=== PATIENT | female | born 1940 | race Caucasian/White ===

== ENCOUNTER 2016-03-14 12:20 | Inpatient (IN) | payer MEDICARE ==
[~2016-03-14] VITALS: Ht 162.6 cm; Wt 131.0 kg
[2016-03-14 12:37] LABS: ABG BASE EXCESS 13.3 (-2.0-2.0); ABG DEVICE NASAL CANN; ABG HCO3 43.1 MEQ/L (22.0-26.0); ABG STANDARD HCO3 36.9 MEQ/L (22.0-26.0); ABG TOTAL CO2 45.6 MEQ/L (23.0-31.0); ABG pH (ARTERIAL) 7.343 UNITS (7.350-7.450)
--- NOTE | 2016-03-14 12:48 | REP ---
Clinical: Chest pain. Technique: Portable upright view. Findings: Examination is limited by portable technique and poor expiratory effort both of which accentuate the pulmonary vasculature and interstitium. Cardiomegaly suggested. No pneumothorax. Impression: Limited examination. Cannot exclude pulmonary interstitial edema or bibasilar opacities. Signed by Mario Cabrera MD 03/14/2016 12:40 P
[2016-03-14] MEDS ORDERED: CALC600T10 PO (12:49)
[2016-03-14] MEDS ORDERED: METF500T PO (12:49)
[2016-03-14] MEDS ORDERED: ATOR1TAB21 PO (12:49)
[2016-03-14] MEDS ORDERED: LASI40TA PO (12:49)
[2016-03-14] MEDS ORDERED: POTA20TA PO (12:49)
[2016-03-14] MEDS ORDERED: LISI-542 PO (12:49)
[2016-03-14 12:55] LABS: ABG PARTIAL PRESSURE CO2 81.2 mmHg (35.0-45.0)
[2016-03-14] MEDS ORDERED: ALBUTEROL SULFATE 2.5 MG/0.5 ML INH NEB SOLN NEB PRN (13:45)
[2016-03-14 14:00] VITALS: BP 157/70
[2016-03-14] MEDS ORDERED: GLUCAGON FOR INJ 1 MG VIAL (J1610) SC PRN (14:00)
[2016-03-14] MEDS ORDERED: DEXTROSE 50% 50 ML SYRINGE IV PRN (14:00)
[2016-03-14] MEDS ORDERED: GLUCOSE 4 GM CHEW TABLET PO PRN (14:00)
[2016-03-14 14:37] LABS: CHOLESTEROL LEVEL 181 MG/DL (<200); TRIGLYCERIDES LEVEL 75 MG/DL (<150)
--- NOTE | 2016-03-14 14:40 | HPEPDOC ---
General Date of Admission Mar 14, 2016 at 13:45 Chief Complaint The patient is a 75-year-old female admitted with a reason for visit of Acute Decompensated Heart Failure. Source: Patient, Family Exam Limitations: No limitations History of Present Illness 75-year-old female with past medical history of arthritis, dyslipidemia, diabetes mellitus, congestive heart failure, ?COPD on 2 L of oxygen with likely underlying obesity hypoventilation syndrome, obstructive sleep apnea on CPAP, with history of hypoxic/hypercapnic respiratory failure requiring intubation and subsequent tracheostomy presented from the [place] [facility] to [facility] after she was found to be in acute decompensated heart failure. According to the patient, she has been feeling increasingly short of breath over the last 3 weeks. She states that this culminated today when she felt short of breath at rest. During this time, the patient states that she has had increasing orthopnea. However, she denies any lower extremity swelling. The patient also states that she has been eating a lot more salty foods including chips, drinking more soda, and other foods. In addition, the patient states she is post to take Lasix 40 mg PO twice a day but she has not been taking the evening dose because she states that it makes her need to go to the bathroom more frequently, and she cannot because of her chronic debilitating arthritis. During this time, patient denies any fevers, chills, chest pain, palpitations, abdominal pain, or any nausea/vomiting. In the [facility] ER the patient was noted to be in hypercapnic respiratory failure with a pH of 7.30 and a CO2 level of 96. The patient was placed on BiPAP therapy and received 80 mg of Lasix IV and subsequently diuresed close to 2 L. Upon evaluation here in the ER, the patient states that her respiratory status has improved greatly. A repeat ABG has shown improvement with a pH of 7.34, and a CO2 of 81. Patient will be admitted under the hospitalist service with a diagnosis of acute decompensated congestive heart failure. Home Medications Scheduled Atorvastatin Calcium (Atorvastatin Calcium) 20 Mg Tab 20 MG PO DAILY (Reported ) PATIENT IS ALL OUT Calcium (Calcium) 600 Mg Tab 600 MG PO DAILY (Reported) Furosemide (Lasix) 40 Mg Tab 40 MG PO DAILY (Reported) SUPPOSED TO BE TAKING BID Lisinopril (Lisinopril) 5 Mg Tab 5 MG PO DAILY (Reported) PATIENT IS ALL OUT Metformin Hydrochloride (Metformin HCl) 500 Mg Tab 500 MG PO QPM (Reported) Potassium Chloride (Klor-Con M20) 20 Meq Tabcr 20 MEQ PO DAILY (Reported) Prednisone (Prednisone) 10 Mg Tahir 10 MG PO ASDIRECTED Allergies Coded Allergies: No Known Allergies (Verified Allergy, Unknown, 03/18/04) Past Medical History Medical History As noted in HPI. Surgical History History of tracheostomy in 2004. Family History Significant Family History: No pertinent family hx Social History * Smoker: non-smoker Alcohol: denies Drugs: denies Review of Symptoms Other systems 10 point review of systems negative as otherwise specified in HPI. Physical Examination ENT Exam: Positive: Atraumatic, Mucous membr. moist/pink Chest Exam: Positive: Diminished, Rales (bibasilar rales noted) Heart Exam: Positive: Normal S1, Normal S2, Rate Normal Telemetry: Positive: Sinus Abdomen Exam: Positive: Soft, Negative: Tenderness Extremity Exam: Negative: Edema, Tenderness Vital Signs As listed in EMR Laboratory Data Labs 24H Laboratory Tests 2 03/14/16 12:31: Arterial Blood pH 7.343L, Arterial Blood Partial Pressure CO2 81.2*H, Arterial Blood Partial Pressure O2 58.0L, Arterial Blood Total CO2 45.6H, Arterial Blood HCO3 43.1H, Arterial Blood Base Excess 13.3H, Arterial Blood Oxygen Saturation 90.2L, Blood Gas Bicarbonate Standard 36.9H, Oxygen Delivery Device NASAL KULDEEP 03/14/16 14:08: Estimated Mean Plasma Glucose 131H, Hemoglobin A1c 6.2 Plan / VTE VTE Prophylaxis Ordered?: Yes Plan Plan Acute decompensated heart failure Likely secondary to nonadherence to medication, dietary indiscretion Patient received 80 mg of Lasix IV total, and has subsequently diuresed 2 L with improvement in her shortness of breath We will continue the patient on IV Lasix, cont YURI-I 2D ECHO ordered EKG noted to be NSR, Initial troponin negative--will serially trend Daily Weights, Monitor I/O's 2gm Low Sodium Diet We will continue to monitor on Telemetry Hypoxic and Hypercapneic Respiratory Failure Initial ABG noted to be 7.30/96/61/45-->Patient placed on BiPAP and given Diuretics Repeat ABG at this time has improved to 7.34/81/58/43 and the patient is currently comfortably saturating 94% on 2L Will hold BiPAP for now and repeat ABG @ 5pm to assess the need for further BiPAP therapy as the patient does appear to be improving COPD on 2L @ Home s/p 125 mg of Solumedrol in the ED with improvement of symptoms Will continue on 60mg q8h Cont Neb treatments ROHAN, likely underlying Obesity Hypoventilation Syndrome Patient may use CPAP that she uses at home Dyslipidemia Atorvastatin Diabetes Mellitus Cont on Insulin Sliding Scale GENESIS GEORGE MD Mar 14, 2016 14:40
--- NOTE | 2016-03-14 14:56 | EDDOCDS ---
Nurse's Notes [facility] Name: Eli Ann Age: 75 yrs Sex: Female : 1940 Arrival Date: 03/14/2016 Time: 12:20 Bed 4 Private MD: Victor Hugo Dee Diagnosis: Acute diastolic (congestive) heart failure;Shortness of breath Presentation: 03/14 12:26 Presenting complaint: EMS states: patient transfer in from [facility] for resp distress, ml6 patient arrived on 2L NC smiling and joking with staff. Adult Sepsis Screening: The patient does not have new or worsening altered mentation. Patient's respiratory rate is less than 22. Systolic blood pressure is greater than 100. Patient has a qSOFA score of 0- Negative Sepsis Screen. Suicide/Homicide risk assessment- the patient denies having any suicidal and/or homicidal ideations and does not present with any other emotional, behavioral or mental health complaints. Status: Patient is not a children's service worker or dependent. Transition of care: patient was not received from another setting of care. 12:26 Acuity: VERA Level 3 ml6 12:26 Method Of Arrival: Ambulance ml6 Triage Assessment: 12:29 General: Appears in no apparent distress, Behavior is appropriate for age, cooperative. ml6 Pain: Denies pain. Neurological: No deficits noted. Level of Consciousness is awake, alert, Oriented to person, place, time. Cardiovascular: Capillary refill < 3 seconds is brisk in bilateral fingers toes. Respiratory: Onset: The symptoms/episode began/occurred yesterday, Airway is patent Respiratory effort is even, unlabored, Respiratory pattern is regular, symmetrical, Reports shortness of breath on exertion. Historical: - Allergies: no known allergies; - Home Meds: 1. atorvastatin 20 mg oral tab 1 tab once daily (Last dose: Unknown) 2. Lasix 40 mg Oral tab 1 tab once daily (Last dose: Unknown) 3. lisinopril 5 mg Oral tab 1 tab once daily (Last dose: Unknown) 4. metformin 500 mg Oral tab 1 tab 2 times per day (Last dose: Unknown) 5. potassium chloride 20 mEq Oral TbER 1 tab once daily (Last dose: Unknown) - PMHx: CHF; Diabetes - NIDDM: controlled; CAD; Hypercholesterolemia; Hypertension; COPD; - PSHx: Tracheostomy; - Social history: Smoking status: Patient states former smoker of tobacco. No barriers to communication noted, Speaks appropriately for age. - Family history: Not pertinent. - : The pt / caregiver states he / she is not on anticoagulants. Home medication list is obtained from the patient. - Exposure Risk Screening:: None identified. Screenin:38 Screening information is obtained from the patient. Fall risk: At risk due to gait js13 disturbance. Assistance ADL's: requires no assistance with activities of daily living. Abuse/DV Screen: The patient / caregiver reports he/she is: not in a situation that causes fear, pain or injury. Nutritional screening: No deficits noted. Advance Directives: There is no active DNR order. home support is adequate. Assessment: 12:38 General: Appears in no apparent distress, Behavior is appropriate for age, cooperative. js13 Pain: Denies pain. Neurological: Level of Consciousness is awake, alert, obeys commands. Cardiovascular: Rhythm is sinus rhythm Chest pain is denied. Respiratory: Airway is patent Respiratory effort is even, Respiratory pattern is regular, symmetrical, Breath sounds with rhonchi Breath sounds are diminished. Derm: Skin is pink, warm & dry. 13:28 General: Appears in no apparent distress, comfortable, Behavior is appropriate for age, js13 cooperative. Pain: Denies pain. Neurological: Level of Consciousness is awake, alert, obeys commands. Cardiovascular: Rhythm is sinus rhythm Chest pain is denied. Respiratory: Airway is patent Respiratory effort is even, unlabored, Respiratory pattern is regular, symmetrical, Breath sounds are diminished. Derm: Skin is pink, warm & dry. 14:35 Adult Sepsis Screening: The patient does not have new or worsening altered mentation. js13 Patient's respiratory rate is less than 22. Systolic blood pressure is greater than 100. Patient has a qSOFA score of 0- Negative Sepsis Screen. General: Appears in no apparent distress, comfortable, Behavior is appropriate for age, cooperative. Pain: Denies pain. Neurological: Level of Consciousness is awake, alert, obeys commands. Cardiovascular: Rhythm is sinus rhythm Chest pain is denied. Respiratory: Airway is patent Respiratory effort is even, unlabored, Respiratory pattern is regular, symmetrical, Breath sounds are diminished. Derm: Skin is pink, warm & dry. Vital Signs: 12:28 BP 157 / 70; Pulse 82; Resp 24; Temp 99.0(TE); Pulse Ox 90% on 4 lpm NC; Weight 139.25 ar3 kg (M); Height 5 ft. 4 in. (162.56 cm) (R); 14:12 BP 142 / 65 (auto/); js13 14:12 Pulse 82 MON; Resp 20; Pulse Ox 92% on 2 lpm NC; js13 14:27 BP 138 / 66 (auto/); js13 14:27 Pulse 82 MON; Resp 20; Temp 98.5(O); Pulse Ox 92% on 2 lpm NC; js13 12:28 Body Mass Index 52.70 (139.25 kg, 162.56 cm) ar3 Vitals: 12:30 Log In Time N/A - ambulance arrival. ml6 ED Course: 12:21 Patient visited by Jyoti Lester PCA. ar3 12:21 Yumiko Wilks,RN is Primary Nurse. ar3 12:21 Victor Hugo Dee is Private Physician. ar3 12:21 Patient moved to Waiting ar3 12:21 Patient moved to 4 ar3 12:26 Jennifer Ayon MD is Attending Physician. fg 12:26 Patient visited by Jennifer Ayon MD. fg 12:26 Triage Initiated ml6 12:29 Patient visited by Jyoti Lester PCA. ar3 12:33 Shahzad Conrad is Hospitalizing Provider. fg 12:33 -Arterial Blood Gas Sent. cs15 12:38 The patient / caregiver is instructed regarding the plan of care and ED course. Cardiac js13 monitor on. Pulse ox on. NIBP on. 12:38 No procedures done that require assistance. js13 12:38 O2 via nasal cannula \T\ 2L/min. js13 12:44 Maintain field IV. Dressing intact. Good blood return noted. Site clean & dry. Gauge & js13 site: 20 gauge in RAC. 12:55 Chest, 1 View Returned. EDMS 13:20 [facility] Payment Agreement was scanned into [employer] and attached to record. lg 13:29 Patient visited by Yumiko Wilks,DENY. js13 RT: 12:33 ABG's drawn from right radial artery allens test done and positive pressure held for 5 cs15 minutes no bleeding noted pressure bandage applied specimen sent pt. tolerated well. Order Results: Lab Order: -Arterial Blood Gas; SPEC'M 03/14/16 12:31 Test: ABG pH (ARTERIAL); Value: 7.343; Range: 7.350-7.450; Abnormal: Below low normal; Units: UNITS; Status: F Test: ABG PARTIAL PRESSURE CO2; Value: 81.2; Range: 35.0-45.0; Abnormal: Above upper panic limits; Units: mmHg; Status: F Test: ABG PARTIAL PRESSURE O2; Value: 58.0; Range: 75.0-100.0; Abnormal: Below low normal; Units: mmHg; Status: F Test: ABG TOTAL CO2; Value: 45.6; Range: 23.0-31.0; Abnormal: Above high normal; Units: MEQ/L; Status: F Test: ABG HCO3; Value: 43.1; Range: 22.0-26.0; Abnormal: Above high normal; Units: MEQ/L; Status: F Test: ABG BASE EXCESS; Value: 13.3; Range: -2.0-2.0; Abnormal: Above high normal; Status: F Test: ABG STANDARD HCO3; Value: 36.9; Range: 22.0-26.0; Abnormal: Above high normal; Units: MEQ/L; Status: F Test: ABG O2 SATURATION; Value: 90.2; Range: 95.0-99.0; Abnormal: Below low normal; Units: %; Status: F Test: ABG DEVICE; Value: NASAL KULDEEP; Status: F Lab Order: TROPONIN; [facility] 03/14/16 14:08 Test: TROPONIN I; Value: < 0.02; Range: < 0.10; Units: NG/ML; Status: F Test Note: ; Troponin I Reference Interval for [place] LOCI: 99th Percentile= 0.00-0.045 ng/ml Risk Stratification: <= 0.10 ng/ml Decreased Risk for Adverse Clinical Events. 0.10-1.50 ng/ml Increased Risk for Adverse Clinical Events. Evaluation of additional criterion and/or repeat testing in 2-6 hours is suggested to rule out myocardial damage. >= 1.50 ng/ml Indicative of Myocardial Injury. Lab Order: HEMOGLOBIN A1C; [facility] 03/14/16 14:08 Test: HEMOGLOBIN A1c; Value: 6.2; Range: 4.5-6.2; Units: %; Status: F Test: ESTIMATED AVERAGE GLUCOSE; Value: 131; Range: 60-110; Abnormal: Above high normal; Units: MG/DL; Status: F Lab Order: CARDIAC RISK PROFILE; [facility] 03/14/16 14:08 Test: TRIGLYCERIDES LEVEL; Value: 75; Range: <150; Units: MG/DL; Status: F Test: CHOLESTEROL LEVEL; Value: 181; Range: <200; Units: MG/DL; Status: F Test: HDL CHOLESTEROL; Value: 80; Range: >40; Units: MG/DL; Status: F Test: LDL CHOLESTEROL; Value: 86.0; Range: <100; Units: MG/DL; Status: F Test: NON-HDL-C; Value: 101; Units: MG/DL; Status: F Test: CHOLESTEROL RISK RATIO; Value: 2.262; Range: <5; Status: F Radiology Order: Chest, 1 View Test: Chest, 1 View REASON FOR EXAMINATION: Chest Pain; Clinical: Chest pain.; ; Technique: Portable upright view.; ; Findings:; Examination is limited by portable technique and poor expiratory effort both of; which accentuate the pulmonary vasculature and interstitium. Cardiomegaly; suggested. No pneumothorax.; ; Impression:; Limited examination.; Cannot exclude pulmonary interstitial edema or bibasilar opacities.; ; ; Signed by; Mario Cabrera MD 03/14/2016 12:40 P; Outcome: 12:33 Decision to Hospitalize by Provider. fg 14:27 Admission hand-off: Report called to Justine Ferrera RN. js13 14:37 Discharge Assessment: Patient awake, alert and oriented x 3. No cognitive and/or js13 functional deficits noted. Patient verbalized understanding of disposition instructions. patient administered narcotics - no. The following High Risk Discharge criteria are identified: None. Admitted to ICU accompanied by nurse, accompanied by tech, family with patient, via stretcher, with oxygen, on monitor, with chart. Condition: stable. No special radiology studies were completed. Property :Personal belongings accompany Pt. 14:55 Patient left the ED. [facility] Signatures: Dispatcher [employer] EDCassandra Marinelli RN RN Essence Presley, Og Marcial lg, RN RN ml6 Trevon, Jyoti, PROPERTY DEVELOPER PROPERTY DEVELOPER ar3 Yumiko Wilks,RN RN js13 Jennifer Ayon MD MD fg Chavo Soler,RT RT cs15 Corrections: (The following items were deleted from the chart) 12:44 12:38 O2 via nasal cannula \T\ 4L/min js13 js13 MTDD
--- NOTE | 2016-03-14 14:56 | EDDOCDS ---
Physician Documentation [facility] Name: Eli Ann Age: 75 yrs Sex: Female : 1940 Arrival Date: 03/14/2016 Time: 12:20 Bed 4 Private MD: Victor Hugo Dee Disposition: 03/14/16 12:33 Hospitalization ordered by Shahzad Conrad for Inpatient Admission. Preliminary diagnosis are Acute diastolic (congestive) heart failure, Shortness of breath. - Bed requested for ICU. - Status is Inpatient Admission. [facility] - Condition is Stable. - Problem is chronic. - Symptoms have improved. Historical: - Allergies: no known allergies; - Home Meds: 1. atorvastatin 20 mg oral tab 1 tab once daily (Last dose: Unknown) 2. Lasix 40 mg Oral tab 1 tab once daily (Last dose: Unknown) 3. lisinopril 5 mg Oral tab 1 tab once daily (Last dose: Unknown) 4. metformin 500 mg Oral tab 1 tab 2 times per day (Last dose: Unknown) 5. potassium chloride 20 mEq Oral TbER 1 tab once daily (Last dose: Unknown) - PMHx: CHF; Diabetes - NIDDM: controlled; CAD; Hypercholesterolemia; Hypertension; COPD; - PSHx: Tracheostomy; - Social history: Smoking status: Patient states former smoker of tobacco. No barriers to communication noted, Speaks appropriately for age. - Family history: Not pertinent. - : The pt / caregiver states he / she is not on anticoagulants. Home medication list is obtained from the patient. - Exposure Risk Screening:: None identified. Vital Signs: 03/14 12:28 BP 157 / 70; Pulse 82; Resp 24; Temp 99.0(TE); Pulse Ox 90% on 4 lpm NC; Weight 139.25 ar3 kg / 306.99 lbs (M); Height 5 ft. 4 in. (162.56 cm) (R); 14:12 BP 142 / 65 (auto/); 13 14:12 Pulse 82 MON; Resp 20; Pulse Ox 92% on 2 lpm NC; 14:27 BP 138 / 66 (auto/); 14:27 Pulse 82 MON; Resp 20; Temp 98.5(O); Pulse Ox 92% on 2 lpm NC; 12:28 Body Mass Index 52.70 (139.25 kg, 162.56 cm) ar3 MDM: 12:23 Call Respiratory ordered. ke 12:23 -Arterial Blood Gas Ordered. EDMS 12:27 Chest, 1 View Ordered. EDMS 12:28 Call Respiratory complete. ar3 12:28 BED REQUEST+ADM ordered. EDMS 13:16 Financial registration complete. lg 13:20 [facility] Payment Agreement was scanned into [employer] and attached to record. lg 13:58 PORTABLE CHEST X-RAY Ordered. EDMS 13:58 Admission / Observation Status ordered. EDMS 13:58 ECHOCARD,DOPPLER/COLOR FLOW ordered. EDMS 13:59 ARTERIAL BLOOD GAS Ordered. EDMS 13:59 TROPONIN Ordered. EDMS 13:59 TROPONIN Ordered. EDMS 13:59 HEMOGLOBIN A1C Ordered. EDMS 13:59 SPUTUM CULTURE AND GRAM STAIN Ordered. EDMS 14:01 CONSISTENT CARBOHYDRATES ordered. EDMS 14:13 CARDIAC RISK PROFILE Ordered. EDMS Signatures: Dispatcher [employer] EDMS Cassandra Rodriguez, RN RN Essence Romero, Reg Reg Ryley Ball, HEARTH FEEDER HEARTH FEEDER Og Zheng RN RN ml6 Jyoti Lester, AUTO APPRENTICE MECHANIC AUTO APPRENTICE MECHANIC ar3 Yumiko Wilks,RN RN js13 Jennifer Ayon MD MD fg Gosselin, Lisa RN RN coring The chart was reviewed and I authenticate all verbal orders and agree with the evaluation and treatment provided.Corrections: (The following items were deleted from the chart) 14:13 13:59 CARDIAC RISK PROFILE ordered. EDMS EDMS Attachments: 13:20 [facility] Payment Agreement lg MTDD
[2016-03-14 15:04] VITALS: BP 174/73
[2016-03-14] MEDS: ALBUTEROL SULFATE 2.5 MG/0.5 ML INH NEB SOLN NEB SCH ×3 (15:33→23:32)
[2016-03-14] MEDS: ENOXAPARIN 40 MG/0.4 ML SYRINGE (J1650) SC SCH (15:41)
[2016-03-14] MEDS: methylPREDNISolone INJ 125 MG/2 ML VIAL (J2930) IV SCH ×2 (15:41→23:44)
[2016-03-14] MEDS: LISINOPRIL 5 MG TAB PO SCH (15:41)
[2016-03-14] MEDS: ATORVASTATIN 20 MG TAB PO SCH (15:42)
[2016-03-14] MEDS: POTASSIUM CHLORIDE 10 MEQ SR TABLET PO SCH (15:42)
[2016-03-14 16:54] LABS: ABG BASE EXCESS 14.4 (-2.0-2.0); ABG HCO3 42.7 MEQ/L (22.0-26.0); ABG PARTIAL PRESSURE O2 59.8 mmHg (75.0-100.0); ABG STANDARD HCO3 38.2 MEQ/L (22.0-26.0); ABG TOTAL CO2 44.8 MEQ/L (23.0-31.0); ABG pH (ARTERIAL) 7.409 UNITS (7.350-7.450)
[2016-03-14] MEDS: FUROSEMIDE 40 MG/4 ML VIAL (J1940) IV SCH (17:20)
[2016-03-14] MEDS: HumaLOG INSULIN (NovoLOG) PER UNIT SC SCH ×2 (17:21→20:38)
[2016-03-14] MEDS: LANSOPRAZOLE SUSPENSION 30 MG/10 ML ORAL SYRINGE (FIRST-LANSOPRAZOLE) PO SCH (17:26)
[2016-03-14 18:00] VITALS: BP 130/63
[2016-03-14 20:00] VITALS: BP 146/62
[2016-03-14] MEDS: NYSTATIN 100,000 UNITS/GM TOPICAL PWD 15 GM TOP SCH (20:39)
[2016-03-15] VITALS: BP 117/55
[2016-03-15] MEDS: ALBUTEROL SULFATE 2.5 MG/0.5 ML INH NEB SOLN NEB SCH ×6 (03:06→23:34)
[2016-03-15 04:00] VITALS: BP 128/62
[2016-03-15 04:31] LABS: ABG BASE EXCESS 14.5 (-2.0-2.0); ABG CPAP 10; ABG HCO3 42.3 MEQ/L (22.0-26.0); ABG TOTAL CO2 44.4 MEQ/L (23.0-31.0); ABG pH (ARTERIAL) 7.419 UNITS (7.350-7.450)
[2016-03-15 04:33] LABS: ABG PARTIAL PRESSURE CO2 66.9 mmHg (35.0-45.0); ABG PARTIAL PRESSURE O2 47.7 mmHg (75.0-100.0)
[2016-03-15 05:21] LABS: ANION GAP 4 MEQ/L (8-16); BLOOD UREA NITROGEN 19 MG/DL (7-18); CALCIUM LEVEL 8.7 MG/DL (8.8-10.2); CARBON DIOXIDE LEVEL 45 MEQ/L (21-32); CHLORIDE LEVEL 94 MEQ/L (98-107); CREATININE FOR GFR 0.76 MG/DL (0.55-1.02); GLOMERULAR FILTRATION RATE > 60.0 (>39); GLUCOSE, FASTING 206 MG/DL (83-110); POTASSIUM SERUM 3.8 MEQ/L (3.5-5.1); SODIUM LEVEL 143 MEQ/L (136-145)
[2016-03-15 05:25] LABS: MEAN CORPUSCULAR HEMOGLOBIN 30.4 pg (27.0-33.0); MEAN CORPUSCULAR HGB CONC 31.4 g/dl (32.0-36.5); MEAN CORPUSCULAR VOLUME 96.9 fl (80.0-96.0); RED CELL DISTRIBUTION WIDTH 13.2 % (11.5-14.5); WHITE BLOOD COUNT 8.3 K/mm3 (4.0-10.0)
--- NOTE | 2016-03-15 06:26 | ECHO ---
DATE OF PROCEDURE: 03/14/2016 DATE OF : 1940 AGE: 75 REFERRING PROVIDER: Dr. Shahzad Conrad. PATIENT LOCATION: Room 3209. REASON FOR ECHOCARDIOGRAM: Congestive heart failure. 2D MEASUREMENTS: IVS: 1.3 cm LV: 4.8 cm LVPW: 1.3 cm LA: 4.0 cm Aorta: 3.0 cm IVC: 1.9 cm DOPPLER MEASUREMENTS: Peak velocity across the aortic valve: 1.7 m/s Peak velocity across the LVOT: 1.4 m/s Mitral E: 0.75 Mitral A: 1.1 Ratio 0.7 2D COMMENTS: 1. Particularly mildly limited study due to poor acoustic window. 2. The left ventricular size is normal with mildly increased left ventricular wall thickness and a normal global left ventricular systolic function. The estimated global left ventricular systolic ejection fraction is 65-70%. 3. Borderline enlarged left atrium. Normal right atrium and right ventricle. 4. The atrial septum appeared to be normal without evidence of defect or shunt. 5. Normal aortic root. 6. Trace pericardial effusion noted, no evidence of cardiac tamponade. 7. Mildly calcified aortic valve, leaflet excursion appeared to be normal. Mildly calcified mitral annulus with normal anterior mitral valve leaflet motion. Normal tricuspid valve. The pulmonic valve and proximal pulmonary artery branches were not well visualized. 8. The inferior vena cava was not visualized. DOPPLER: Only trace aortic regurgitation detected. Abnormal relaxation pattern was noted across the mitral valve leaflets consistent with grade 1 left ventricular diastolic dysfunction. IMPRESSION: 1. Particularly mildly limited study due to poor acoustic window. 2. Normal global left ventricular systolic function with mild concentric left ventricular hypertrophy. There are features of left ventricular diastolic dysfunction, abnormal relaxation. 3. Isolated borderline enlarged left atrium, no evidence of significant mitral regurgitation. 4. Aortic valve sclerosis with trace aortic regurgitation. 5. Trace pericardial effusion.
[2016-03-15 08:00] VITALS: BP 115/58
[2016-03-15] MEDS: HumaLOG INSULIN (NovoLOG) PER UNIT SC SCH ×4 (08:38→20:37)
[2016-03-15] MEDS: ENOXAPARIN 40 MG/0.4 ML SYRINGE (J1650) SC SCH (08:39)
[2016-03-15] MEDS: methylPREDNISolone INJ 125 MG/2 ML VIAL (J2930) IV SCH ×2 (08:39→19:46)
[2016-03-15] MEDS: FUROSEMIDE 40 MG/4 ML VIAL (J1940) IV SCH ×2 (08:39→17:17)
[2016-03-15] MEDS: LANSOPRAZOLE SUSPENSION 30 MG/10 ML ORAL SYRINGE (FIRST-LANSOPRAZOLE) PO SCH (08:39)
[2016-03-15] MEDS: POTASSIUM CHLORIDE 10 MEQ SR TABLET PO SCH (08:40)
[2016-03-15] MEDS: LISINOPRIL 5 MG TAB PO SCH (08:40)
[2016-03-15] MEDS: ATORVASTATIN 20 MG TAB PO SCH (08:40)
[2016-03-15] MEDS: NYSTATIN 100,000 UNITS/GM TOPICAL PWD 15 GM TOP SCH ×2 (08:41→21:26)
[2016-03-15 12:00] VITALS: BP 106/56
[2016-03-15] MEDS ORDERED: SLF 3 ML SYR IV PRN (12:45)
[2016-03-15] MEDS: SLF 3 ML SYR IV SCH ×2 (13:38→21:26)
--- NOTE | 2016-03-15 15:02 | IPN ---
DATE: 03/15/2016 Ms. Ann is feeling better this morning than she did at the time of presentation. She has no complaints of pain. No chest pain. Shortness of breath has improved. Apparently, last night, she had difficulty with her continuous positive airway pressure (CPAP) device and she required a higher end-expiratory pressure. She has been more comfortable this morning. PHYSICAL EXAMINATION: VITAL SIGNS: Temperature 98.6, pulse 74, respiratory rate 26, blood pressure 115/58, 92% on three liters. Input and output (I and O) notable for a negative fluid balance of -2250. Weight this morning is 132 kg with a body mass index of 50. GENERAL: She is awake, appropriately interactive, and pleasantly conversant. RESPIRATORY: Breathing is symmetrical. I:E ratio is 1:3, diminished throughout. No accessory muscle use. Speaking in sentences. HEART: Regular rate and rhythm. No significant arrhythmia on monitor. ABDOMEN: Soft, doughy, nontender. LABORATORY DATA: White cell count 8.3, hemoglobin 13.5, platelets of 249. BUN 19, creatinine 0.76. Sputum culture looks to be a good sample. The results of which are pending. ASSESSMENT: This is a 75-year-old with decompensated congestive heart failure with diastolic dysfunction, preserved left ventricular ejection fraction who had hypoxic and hypercapnic respiratory failure with improvement. PLAN: 1. Congestive heart failure. The patient has had a negative fluid status. Continuing with IV Lasix as ordered. A 2-D echocardiogram showed diastolic dysfunction. 2. The patient had hypoxic/hypercapnic respiratory failure with difficulty managing on home continuous positive airway pressure (CPAP) last night. Most likely related to changing lung compliance related to her decompensated heart failure. I discussed this case in general with the covering physics instructor who suggested a nocturnal oximetry study tonight. We will continue with steroids. 3. The patient has suspected obesity hypoventilation syndrome related to her morbid obesity. 4. The patient has dyslipidemia. 5. The patient has diabetes.
--- NOTE | 2016-03-15 15:47 | REP ---
PORTABLE CHEST: AP portable view of the chest is performed and compared to multiple prior exams, the most recent of which is 03/14/2016. Cardiac silhouette is again prominent. There is calcification and ectasia of the thoracic aorta. There is significant elevation of the right hemidiaphragm, unchanged. There is pulmonary venous hypertension. Linear atelectatic changes are seen in each lung base. No definite consolidating infiltrate is seen. IMPRESSION: Mild cardiomegaly and pulmonary vascular congestion. Bibasilar atelectatic changes. Signed by Junior Jeter MD 03/16/2016 05:06 P
[2016-03-15 16:00] VITALS: BP 103/50
[2016-03-15 20:00] VITALS: BP 120/57
[2016-03-16] VITALS: BP 102/58
[2016-03-16] MEDS: ALBUTEROL SULFATE 2.5 MG/0.5 ML INH NEB SOLN NEB SCH ×6 (03:33→23:30)
[2016-03-16 04:00] VITALS: BP 95/50
[2016-03-16 05:03] LABS: MEAN CORPUSCULAR HEMOGLOBIN 30.3 pg (27.0-33.0); MEAN CORPUSCULAR HGB CONC 30.5 g/dl (32.0-36.5); MEAN CORPUSCULAR VOLUME 99.3 fl (80.0-96.0); RED CELL DISTRIBUTION WIDTH 14.1 % (11.5-14.5); WHITE BLOOD COUNT 14.2 K/mm3 (4.0-10.0)
[2016-03-16 05:27] LABS: ANION GAP 6 MEQ/L (8-16); BLOOD UREA NITROGEN 32 MG/DL (7-18); CALCIUM LEVEL 8.6 MG/DL (8.8-10.2); CARBON DIOXIDE LEVEL 43 MEQ/L (21-32); CHLORIDE LEVEL 93 MEQ/L (98-107); CREATININE FOR GFR 0.83 MG/DL (0.55-1.02); GLOMERULAR FILTRATION RATE > 60.0 (>39); GLUCOSE, FASTING 202 MG/DL (83-110); POTASSIUM SERUM 4.2 MEQ/L (3.5-5.1); SODIUM LEVEL 142 MEQ/L (136-145)
[2016-03-16] MEDS: SLF 3 ML SYR IV SCH ×3 (06:20→21:55)
[2016-03-16] MEDS: methylPREDNISolone INJ 125 MG/2 ML VIAL (J2930) IV SCH ×2 (07:41→20:09)
[2016-03-16] MEDS: HumaLOG INSULIN (NovoLOG) PER UNIT SC SCH ×4 (07:41→20:10)
[2016-03-16 08:00] VITALS: BP 121/54
[2016-03-16] MEDS: ENOXAPARIN 40 MG/0.4 ML SYRINGE (J1650) SC SCH (08:35)
[2016-03-16] MEDS: LANSOPRAZOLE SUSPENSION 30 MG/10 ML ORAL SYRINGE (FIRST-LANSOPRAZOLE) PO SCH (08:35)
[2016-03-16] MEDS: ATORVASTATIN 20 MG TAB PO SCH (08:35)
[2016-03-16] MEDS: LISINOPRIL 5 MG TAB PO SCH (08:36)
[2016-03-16] MEDS: FUROSEMIDE 40 MG/4 ML VIAL (J1940) IV SCH (08:36)
[2016-03-16] MEDS: POTASSIUM CHLORIDE 10 MEQ SR TABLET PO SCH (08:36)
[2016-03-16] MEDS: NYSTATIN 100,000 UNITS/GM TOPICAL PWD 15 GM TOP SCH ×2 (08:38→20:10)
--- NOTE | 2016-03-16 09:13 | REP ---
PORTABLE CHEST: AP portable view of the chest is performed and compared to prior study of 03/15/2016. There is again cardiomegaly and vascular congestion, unchanged. Calcified granuloma is again seen in the right lung. There is mild linear fibroatelectatic change in each lung base. There is significant elevation of the right hemidiaphragm. The mediastinal silhouette is unchanged. IMPRESSION: Stable exam. Signed by Junior Jeter MD 03/16/2016 05:18 P
--- NOTE | 2016-03-16 11:17 | IPN ---
DATE: 03/16/2016 Ms. Ann is feeling well today. She did sleep okay last night. She said it is the first night that she slept well since being in the hospital. She has no complaints of pain. No chest pain. She is not particularly short of breath. She is not coughing. She has tolerated a diet. Says that she is chronically incontinent of urine. Temperature 97.6, pulse 65, respiratory rate 28, blood pressure 121/54, 92% on three liters. Input and output (I and O) notable for a negative fluid balance of -300. No bowel movements noted yesterday. Weight is 134.2 kg with a body mass index of 50.8. She is awake, appropriately interactive, and pleasantly conversant. Breathing is symmetrical and diminished throughout. I:E ratio is 1:3. No wheezes, rales or rhonchi. Neck is thick. No accessory muscle use. Abdomen soft, doughy, nontender. Heart is in a regular rate and rhythm. No arrhythmia on the monitor. White cell count 14.2, hemoglobin 13, platelets of 240. BUN 32, creatinine 0.8. Sputum is notable for normal renuka. Chest x-ray from today shows elevation of the right hemidiaphragm. Calcified granuloma in the right lung with no change. ASSESSMENT: This is a 75-year-old who presented with decompensated congestive heart failure with diastolic dysfunction with preserved left ventricular ejection fraction. PLAN: 1. Congestive heart failure. The patient is probably at her dry weight and is much improved from the time of presentation. Will switch to oral Lasix today. Monitor clinically. 2. The patient had hypoxic/hypercapnic respiratory failure at the time of presentation and has had difficulty with home continuous positive airway pressure (CPAP). Will attempt to adjust her home CPAP to 9 for the PEEP and then bleed in oxygen to maintain saturations. She will need outpatient sleep study. I have discussed this case with the on-call rocket test fire worker in general. 3. The patient has suspected obesity hypoventilation syndrome related to morbid obesity. 4. The patient has dyslipidemia. 5. The patient has diabetes. Finger sticks are reasonably well controlled for the current setting.
[2016-03-16 12:00] VITALS: BP 113/55
--- NOTE | 2016-03-16 15:57 | EDDOCDS ---
Physician Documentation [facility] Name: Eli Ann Age: 75 yrs Sex: Female : 1940 Arrival Date: 03/14/2016 Time: 12:20 Bed 4 Private MD: Victor Hugo Dee Disposition: 03/14/16 12:33 Hospitalization ordered by Shahzad Conrad for Inpatient Admission. Preliminary diagnosis are Acute diastolic (congestive) heart failure, Shortness of breath. - Bed requested for ICU. - [facility] - Condition is Stable. - Problem is chronic. - Symptoms have improved. Historical: - Allergies: no known allergies; - Home Meds: 1. atorvastatin 20 mg oral tab 1 tab once daily (Last dose: Unknown) 2. Lasix 40 mg Oral tab 1 tab once daily (Last dose: Unknown) 3. lisinopril 5 mg Oral tab 1 tab once daily (Last dose: Unknown) 4. metformin 500 mg Oral tab 1 tab 2 times per day (Last dose: Unknown) 5. potassium chloride 20 mEq Oral TbER 1 tab once daily (Last dose: Unknown) - PMHx: CHF; Diabetes - NIDDM: controlled; CAD; Hypercholesterolemia; Hypertension; COPD; - PSHx: Tracheostomy; - Social history: Smoking status: Patient states former smoker of tobacco. No barriers to communication noted, Speaks appropriately for age. - Family history: Not pertinent. - : The pt / caregiver states he / she is not on anticoagulants. Home medication list is obtained from the patient. - Exposure Risk Screening:: None identified. Vital Signs: 03/14 12:28 BP 157 / 70; Pulse 82; Resp 24; Temp 99.0(TE); Pulse Ox 90% on 4 lpm NC; Weight 139.25 ar3 kg / 306.99 lbs (M); Height 5 ft. 4 in. (162.56 cm) (R); 14:12 BP 142 / 65 (auto/); 13 14:12 Pulse 82 MON; Resp 20; Pulse Ox 92% on 2 lpm NC; 14:27 BP 138 / 66 (auto/); 14:27 Pulse 82 MON; Resp 20; Temp 98.5(O); Pulse Ox 92% on 2 lpm NC; 12:28 Body Mass Index 52.70 (139.25 kg, 162.56 cm) ar3 MDM: 12:23 Call Respiratory ordered. ke 12:23 -Arterial Blood Gas Ordered. EDMS 12:27 Chest, 1 View Ordered. EDMS 12:28 Call Respiratory complete. ar3 12:28 BED REQUEST+ADM ordered. EDMS 13:16 Financial registration complete. lg 13:20 [facility] Payment Agreement was scanned into [employer] and attached to record. lg 13:58 PORTABLE CHEST X-RAY Ordered. EDMS 13:58 Admission / Observation Status ordered. EDMS 13:58 ECHOCARD,DOPPLER/COLOR FLOW ordered. EDMS 13:59 ARTERIAL BLOOD GAS Ordered. EDMS 13:59 TROPONIN Ordered. EDMS 13:59 TROPONIN Ordered. EDMS 13:59 HEMOGLOBIN A1C Ordered. EDMS 13:59 SPUTUM CULTURE AND GRAM STAIN Ordered. EDMS 14:01 CONSISTENT CARBOHYDRATES ordered. EDMS 14:13 CARDIAC RISK PROFILE Ordered. EDMS 03/15 04:07 T-Sheet-- Draft Copy was scanned into [employer] and attached to record. hs2 10:57 PCR was scanned into [employer] and attached to record. gb Signatures: Dispatcher [employer] EDMS Cassandra Rodriguez, RN RN Carmen Potter, Reg Reg gb Essence Flores, Reg Reg lg Ryley Ball, PATIENT SAFETY ATTENDANT PATIENT SAFETY ATTENDANT Og Zheng RN RN ml6 Jyoti Lester, DEPUTY EDITOR IN CHIEF DEPUTY EDITOR IN CHIEF ar3 Yumiko Wilks,RN RN js13 Jennifer Ayon MD MD fg Stanton, Hillary, Reg Reg hs2 Chelsie Torres RN DENY coombsg The chart was reviewed and I authenticate all verbal orders and agree with the evaluation and treatment provided.Corrections: (The following items were deleted from the chart) 03/14 14:13 13:59 CARDIAC RISK PROFILE ordered. EDMS EDMS Attachments: 13:20 [facility] Payment Agreement lg 03/15 04:07 T-Sheet-- Draft Copy hs2 Chart Complete MTDD
--- NOTE | 2016-03-16 15:57 | EDDOCDS ---
Nurse's Notes [facility] Name: Eli Ann Age: 75 yrs Sex: Female : 1940 Arrival Date: 03/14/2016 Time: 12:20 Bed 4 Private MD: Victor Hugo Dee Diagnosis: Acute diastolic (congestive) heart failure;Shortness of breath Presentation: 03/14 12:26 Presenting complaint: EMS states: patient transfer in from [facility] for resp distress, ml6 patient arrived on 2L NC smiling and joking with staff. Adult Sepsis Screening: The patient does not have new or worsening altered mentation. Patient's respiratory rate is less than 22. Systolic blood pressure is greater than 100. Patient has a qSOFA score of 0- Negative Sepsis Screen. Suicide/Homicide risk assessment- the patient denies having any suicidal and/or homicidal ideations and does not present with any other emotional, behavioral or mental health complaints. Status: Patient is not a marine service operator or dependent. Transition of care: patient was not received from another setting of care. 12:26 Acuity: VERA Level 3 ml6 12:26 Method Of Arrival: Ambulance ml6 Triage Assessment: 12:29 General: Appears in no apparent distress, Behavior is appropriate for age, cooperative. ml6 Pain: Denies pain. Neurological: No deficits noted. Level of Consciousness is awake, alert, Oriented to person, place, time. Cardiovascular: Capillary refill < 3 seconds is brisk in bilateral fingers toes. Respiratory: Onset: The symptoms/episode began/occurred yesterday, Airway is patent Respiratory effort is even, unlabored, Respiratory pattern is regular, symmetrical, Reports shortness of breath on exertion. Historical: - Allergies: no known allergies; - Home Meds: 1. atorvastatin 20 mg oral tab 1 tab once daily (Last dose: Unknown) 2. Lasix 40 mg Oral tab 1 tab once daily (Last dose: Unknown) 3. lisinopril 5 mg Oral tab 1 tab once daily (Last dose: Unknown) 4. metformin 500 mg Oral tab 1 tab 2 times per day (Last dose: Unknown) 5. potassium chloride 20 mEq Oral TbER 1 tab once daily (Last dose: Unknown) - PMHx: CHF; Diabetes - NIDDM: controlled; CAD; Hypercholesterolemia; Hypertension; COPD; - PSHx: Tracheostomy; - Social history: Smoking status: Patient states former smoker of tobacco. No barriers to communication noted, Speaks appropriately for age. - Family history: Not pertinent. - : The pt / caregiver states he / she is not on anticoagulants. Home medication list is obtained from the patient. - Exposure Risk Screening:: None identified. Screenin:38 Screening information is obtained from the patient. Fall risk: At risk due to gait js13 disturbance. Assistance ADL's: requires no assistance with activities of daily living. Abuse/DV Screen: The patient / caregiver reports he/she is: not in a situation that causes fear, pain or injury. Nutritional screening: No deficits noted. Advance Directives: There is no active DNR order. home support is adequate. Assessment: 12:38 General: Appears in no apparent distress, Behavior is appropriate for age, cooperative. js13 Pain: Denies pain. Neurological: Level of Consciousness is awake, alert, obeys commands. Cardiovascular: Rhythm is sinus rhythm Chest pain is denied. Respiratory: Airway is patent Respiratory effort is even, Respiratory pattern is regular, symmetrical, Breath sounds with rhonchi Breath sounds are diminished. Derm: Skin is pink, warm & dry. 13:28 General: Appears in no apparent distress, comfortable, Behavior is appropriate for age, js13 cooperative. Pain: Denies pain. Neurological: Level of Consciousness is awake, alert, obeys commands. Cardiovascular: Rhythm is sinus rhythm Chest pain is denied. Respiratory: Airway is patent Respiratory effort is even, unlabored, Respiratory pattern is regular, symmetrical, Breath sounds are diminished. Derm: Skin is pink, warm & dry. 14:35 Adult Sepsis Screening: The patient does not have new or worsening altered mentation. js13 Patient's respiratory rate is less than 22. Systolic blood pressure is greater than 100. Patient has a qSOFA score of 0- Negative Sepsis Screen. General: Appears in no apparent distress, comfortable, Behavior is appropriate for age, cooperative. Pain: Denies pain. Neurological: Level of Consciousness is awake, alert, obeys commands. Cardiovascular: Rhythm is sinus rhythm Chest pain is denied. Respiratory: Airway is patent Respiratory effort is even, unlabored, Respiratory pattern is regular, symmetrical, Breath sounds are diminished. Derm: Skin is pink, warm & dry. Vital Signs: 12:28 BP 157 / 70; Pulse 82; Resp 24; Temp 99.0(TE); Pulse Ox 90% on 4 lpm NC; Weight 139.25 ar3 kg (M); Height 5 ft. 4 in. (162.56 cm) (R); 14:12 BP 142 / 65 (auto/); js13 14:12 Pulse 82 MON; Resp 20; Pulse Ox 92% on 2 lpm NC; js13 14:27 BP 138 / 66 (auto/); js13 14:27 Pulse 82 MON; Resp 20; Temp 98.5(O); Pulse Ox 92% on 2 lpm NC; js13 12:28 Body Mass Index 52.70 (139.25 kg, 162.56 cm) ar3 Vitals: 12:30 Log In Time N/A - ambulance arrival. ml6 ED Course: 12:21 Patient visited by Jyoti Lester PCA. ar3 12:21 Yumiko Wilks,RN is Primary Nurse. ar3 12:21 Victor Hugo Dee is Private Physician. ar3 12:21 Patient moved to Waiting ar3 12:21 Patient moved to 4 ar3 12:26 Jennifer Ayon MD is Attending Physician. fg 12:26 Patient visited by Jennifer Ayon MD. fg 12:26 Triage Initiated ml6 12:29 Patient visited by Jyoti Lester PCA. ar3 12:33 Shahzad Conrad is Hospitalizing Provider. fg 12:33 -Arterial Blood Gas Sent. cs15 12:38 The patient / caregiver is instructed regarding the plan of care and ED course. Cardiac js13 monitor on. Pulse ox on. NIBP on. 12:38 No procedures done that require assistance. js13 12:38 O2 via nasal cannula \T\ 2L/min. js13 12:44 Maintain field IV. Dressing intact. Good blood return noted. Site clean & dry. Gauge & js13 site: 20 gauge in RAC. 12:55 Chest, 1 View Returned. EDMS 13:20 [facility] Payment Agreement was scanned into [employer] and attached to record. lg 13:29 Patient visited by Yumiko Wilks,DENY. js13 03/15 04:07 T-Sheet-- Draft Copy was scanned into [employer] and attached to record. hs2 10:57 PCR was scanned into [employer] and attached to record. gb RT: 03/14 12:33 ABG's drawn from right radial artery allens test done and positive pressure held for 5 cs15 minutes no bleeding noted pressure bandage applied specimen sent pt. tolerated well. Order Results: Lab Order: -[facility] 12:31 Test: ABG pH (ARTERIAL); Value: 7.343; Range: 7.350-7.450; Abnormal: Below low normal; Units: UNITS; Status: F Test: ABG PARTIAL PRESSURE CO2; Value: 81.2; Range: 35.0-45.0; Abnormal: Above upper panic limits; Units: mmHg; Status: F Test: ABG PARTIAL PRESSURE O2; Value: 58.0; Range: 75.0-100.0; Abnormal: Below low normal; Units: mmHg; Status: F Test: ABG TOTAL CO2; Value: 45.6; Range: 23.0-31.0; Abnormal: Above high normal; Units: MEQ/L; Status: F Test: ABG HCO3; Value: 43.1; Range: 22.0-26.0; Abnormal: Above high normal; Units: MEQ/L; Status: F Test: ABG BASE EXCESS; Value: 13.3; Range: -2.0-2.0; Abnormal: Above high normal; Status: F Test: ABG STANDARD HCO3; Value: 36.9; Range: 22.0-26.0; Abnormal: Above high normal; Units: MEQ/L; Status: F Test: ABG O2 SATURATION; Value: 90.2; Range: 95.0-99.0; Abnormal: Below low normal; Units: %; Status: F Test: ABG DEVICE; Value: NASAL KULDEEP; Status: F Lab Order: TROPONIN; SPEC'M 03/14/16 14:08 Test: TROPONIN I; Value: < 0.02; Range: < 0.10; Units: NG/ML; Status: F Test Note: ; Troponin I Reference Interval for [employer] LOCI: 99th Percentile= 0.00-0.045 ng/ml Risk Stratification: <= 0.10 ng/ml Decreased Risk for Adverse Clinical Events. 0.10-1.50 ng/ml Increased Risk for Adverse Clinical Events. Evaluation of additional criterion and/or repeat testing in 2-6 hours is suggested to rule out myocardial damage. >= 1.50 ng/ml Indicative of Myocardial Injury. Lab Order: HEMOGLOBIN A1C; SPEC'M 03/14/16 14:08 Test: HEMOGLOBIN A1c; Value: 6.2; Range: 4.5-6.2; Units: %; Status: F Test: ESTIMATED AVERAGE GLUCOSE; Value: 131; Range: 60-110; Abnormal: Above high normal; Units: MG/DL; Status: F Lab Order: CARDIAC RISK PROFILE; SPEC'M 03/14/16 14:08 Test: TRIGLYCERIDES LEVEL; Value: 75; Range: <150; Units: MG/DL; Status: F Test: CHOLESTEROL LEVEL; Value: 181; Range: <200; Units: MG/DL; Status: F Test: HDL CHOLESTEROL; Value: 80; Range: >40; Units: MG/DL; Status: F Test: LDL CHOLESTEROL; Value: 86.0; Range: <100; Units: MG/DL; Status: F Test: NON-HDL-C; Value: 101; Units: MG/DL; Status: F Test: CHOLESTEROL RISK RATIO; Value: 2.262; Range: <5; Status: F Radiology Order: Chest, 1 View Test: Chest, 1 View REASON FOR EXAMINATION: Chest Pain; Clinical: Chest pain.; ; Technique: Portable upright view.; ; Findings:; Examination is limited by portable technique and poor expiratory effort both of; which accentuate the pulmonary vasculature and interstitium. Cardiomegaly; suggested. No pneumothorax.; ; Impression:; Limited examination.; Cannot exclude pulmonary interstitial edema or bibasilar opacities.; ; ; Signed by; Mario Cabrera MD 03/14/2016 12:40 P; Outcome: 12:33 Decision to Hospitalize by Provider. fg 14:27 Admission hand-off: Report called to Justine Ferrera RN. js13 14:37 Discharge Assessment: Patient awake, alert and oriented x 3. No cognitive and/or js13 functional deficits noted. Patient verbalized understanding of disposition instructions. patient administered narcotics - no. The following High Risk Discharge criteria are identified: None. Admitted to ICU accompanied by nurse, accompanied by tech, family with patient, via stretcher, with oxygen, on monitor, with chart. Condition: stable. No special radiology studies were completed. Property :Personal belongings accompany Pt. 14:55 Patient left the ED. kpj Signatures: Dispatcher [employer] EDMS Cassandra Rodriguez, RN RN kpj Carmen Car, Reg Reg gb Essence Flores, Reg Reg lg Og Aguilar, RN RN ml6 Jyoti Lester, DIESEL ENGINE SPECIALIST DIESEL ENGINE SPECIALIST ar3 Yumiko Wilks,RN RN js13 Jennifer Ayon MD MD Chavo Soler,RT RT cs15 Moriah Barbosa, Reg Reg hs2 Corrections: (The following items were deleted from the chart) 12:44 12:38 O2 via nasal cannula \T\ 4L/min js13 js13 Chart Complete MTDD
--- NOTE | 2016-03-16 15:57 | EDDOCDS ---
Physician Documentation [facility] Name: Eli Ann Age: 75 yrs Sex: Female : 1940 Arrival Date: 03/14/2016 Time: 12:20 Bed 4 Private MD: Victor Hugo Dee Disposition: 03/14/16 12:33 Hospitalization ordered by Shahzad Conrad for Inpatient Admission. Preliminary diagnosis are Acute diastolic (congestive) heart failure, Shortness of breath. - Bed requested for ICU. - Status is Inpatient Ad[facility]. [facility] - Condition is Stable. - Problem is chronic. - Symptoms have improved. Historical: - Allergies: no known allergies; - Home Meds: 1. atorvastatin 20 mg oral tab 1 tab once daily (Last dose: Unknown) 2. Lasix 40 mg Oral tab 1 tab once daily (Last dose: Unknown) 3. lisinopril 5 mg Oral tab 1 tab once daily (Last dose: Unknown) 4. metformin 500 mg Oral tab 1 tab 2 times per day (Last dose: Unknown) 5. potassium chloride 20 mEq Oral TbER 1 tab once daily (Last dose: Unknown) - PMHx: CHF; Diabetes - NIDDM: controlled; CAD; Hypercholesterolemia; Hypertension; COPD; - PSHx: Tracheostomy; - Social history: Smoking status: Patient states former smoker of tobacco. No barriers to communication noted, Speaks appropriately for age. - Family history: Not pertinent. - : The pt / caregiver states he / she is not on anticoagulants. Home medication list is obtained from the patient. - Exposure Risk Screening:: None identified. Vital Signs: 03/14 12:28 BP 157 / 70; Pulse 82; Resp 24; Temp 99.0(TE); Pulse Ox 90% on 4 lpm NC; Weight 139.25 ar3 kg / 306.99 lbs (M); Height 5 ft. 4 in. (162.56 cm) (R); 14:12 BP 142 / 65 (auto/); 13 14:12 Pulse 82 MON; Resp 20; Pulse Ox 92% on 2 lpm NC; 14:27 BP 138 / 66 (auto/); 14:27 Pulse 82 MON; Resp 20; Temp 98.5(O); Pulse Ox 92% on 2 lpm NC; 12:28 Body Mass Index 52.70 (139.25 kg, 162.56 cm) ar3 MDM: 12:23 Call Respiratory ordered. ke 12:23 -Arterial Blood Gas Ordered. EDMS 12:27 Chest, 1 View Ordered. EDMS 12:28 Call Respiratory complete. ar3 12:28 BED REQUEST+ADM ordered. EDMS 13:16 Financial registration complete. lg 13:20 [facility] Payment Agreement was scanned into [employer] and attached to record. lg 13:58 PORTABLE CHEST X-RAY Ordered. EDMS 13:58 Admission / Observation Status ordered. EDMS 13:58 ECHOCARD,DOPPLER/COLOR FLOW ordered. EDMS 13:59 ARTERIAL BLOOD GAS Ordered. EDMS 13:59 TROPONIN Ordered. EDMS 13:59 TROPONIN Ordered. EDMS 13:59 HEMOGLOBIN A1C Ordered. EDMS 13:59 SPUTUM CULTURE AND GRAM STAIN Ordered. EDMS 14:01 CONSISTENT CARBOHYDRATES ordered. EDMS 14:13 CARDIAC RISK PROFILE Ordered. EDMS 03/15 04:07 T-Sheet-- Draft Copy was scanned into [employer] and attached to record. hs2 10:57 PCR was scanned into [employer] and attached to record. gb Signatures: Dispatcher [employer] EDMS Cassandra Rodriguez, RN RN Carmen Potter, Reg Reg gb Essence Flores, Reg Reg lg Ryley Ball, TESTING LEAD TESTING LEAD Og Zheng RN RN ml6 Jyoti Lester, STEAM TABLE ATTENDANT STEAM TABLE ATTENDANT ar3 Yumiko Wilks,RN RN js13 Jennifer Ayon MD MD fg Stanton, Hillary, Reg Reg hs2 Chelsie Torres RN DENY coombsg The chart was reviewed and I authenticate all verbal orders and agree with the evaluation and treatment provided.Corrections: (The following items were deleted from the chart) 03/14 14:13 13:59 CARDIAC RISK PROFILE ordered. EDMS EDMS Attachments: 13:20 [facility] [place] [facility] Payment Agreement lg 03/15 04:07 T-Sheet-- Draft Copy hs2 Chart Complete MTDD
[2016-03-16 16:30] VITALS: BP 100/52
[2016-03-16] MEDS: FUROSEMIDE 40 MG TAB PO SCH (17:13)
[2016-03-16 20:00] VITALS: BP 108/58
[2016-03-17] VITALS: BP 110/59
[2016-03-17] MEDS: ALBUTEROL SULFATE 2.5 MG/0.5 ML INH NEB SOLN NEB SCH ×6 (03:32→23:11)
[2016-03-17 04:00] VITALS: BP 126/61
[2016-03-17 05:28] LABS: MEAN CORPUSCULAR HEMOGLOBIN 29.7 pg (27.0-33.0); MEAN CORPUSCULAR HGB CONC 30.5 g/dl (32.0-36.5); MEAN CORPUSCULAR VOLUME 97.4 fl (80.0-96.0); RED CELL DISTRIBUTION WIDTH 13.6 % (11.5-14.5)
[2016-03-17] MEDS: SLF 3 ML SYR IV SCH ×3 (05:34→20:16)
[2016-03-17 05:38] LABS: ANION GAP 3 MEQ/L (8-16); BLOOD UREA NITROGEN 32 MG/DL (7-18); CALCIUM LEVEL 8.6 MG/DL (8.8-10.2); CARBON DIOXIDE LEVEL 44 MEQ/L (21-32); CHLORIDE LEVEL 98 MEQ/L (98-107); CREATININE FOR GFR 0.77 MG/DL (0.55-1.02); GLOMERULAR FILTRATION RATE > 60.0 (>39); GLUCOSE, FASTING 205 MG/DL (83-110); POTASSIUM SERUM 4.5 MEQ/L (3.5-5.1); SODIUM LEVEL 145 MEQ/L (136-145)
[2016-03-17 08:00] VITALS: BP 135/64
[2016-03-17] MEDS: methylPREDNISolone INJ 125 MG/2 ML VIAL (J2930) IV SCH ×2 (08:10→20:16)
[2016-03-17] MEDS: HumaLOG INSULIN (NovoLOG) PER UNIT SC SCH ×4 (08:10→20:16)
[2016-03-17] MEDS: FUROSEMIDE 40 MG TAB PO SCH ×2 (08:11→16:36)
[2016-03-17] MEDS: LISINOPRIL 5 MG TAB PO SCH (08:11)
[2016-03-17] MEDS: LANSOPRAZOLE SUSPENSION 30 MG/10 ML ORAL SYRINGE (FIRST-LANSOPRAZOLE) PO SCH (08:11)
[2016-03-17] MEDS: ATORVASTATIN 20 MG TAB PO SCH (08:11)
[2016-03-17] MEDS: POTASSIUM CHLORIDE 10 MEQ SR TABLET PO SCH (08:11)
[2016-03-17] MEDS: ENOXAPARIN 40 MG/0.4 ML SYRINGE (J1650) SC SCH (08:12)
[2016-03-17] MEDS: NYSTATIN 100,000 UNITS/GM TOPICAL PWD 15 GM TOP SCH ×2 (08:13→20:17)
[2016-03-17 12:00] VITALS: BP 107/57
[2016-03-17 16:00] VITALS: BP 110/55
--- NOTE | 2016-03-17 19:06 | IPN ---
DATE: 03/17/2016 Ms. Ann has actually been walking short distances, unfortunately did not tolerate her home bi-level positive airway pressure very well last night. Temperature is 97.4, pulse 64, respiratory rate 22, blood pressure 135/64, 93% on 3 liters nasal cannula. Ins Outs notable for a positive fluid balance of 275. Two bowel movements today. She is awake, appropriately interactive, pleasantly conversive. I:E is 1:4. Breath sounds are distant. Speaking in complete sentences. Heart is regular rate and rhythm. Abdomen: Soft, doughy, non-tender. White cell count 11, hemoglobin 13, BUN 32, creatinine 0.77. MY ASSESSMENT IS FOLLOWS: This is a 75-year-old with decompensated congestive heart failure with diastolic dysfunction, preserved left ventricular ejection fraction. PLAN IS FOLLOWS: 1. Congestive heart failure. Patient appears to be much improved from her time at presentation, on oral Lasix, monitor clinically. 2. Patient has hypoxic hypercapnic respiratory failure at the time of presentation, has been having difficulty with her continuous positive airway pressure (CPAP) for obstructive sleep apnea, I believe she may benefit from a repeat sleep study but for the meantime need to find setting that will work for her at home so she can be safely discharged. 3. Patient has suspected obesity hypoventilation and dyslipidemia. 4. Patient has diabetes.
[2016-03-17 20:00] VITALS: BP 115/62
[2016-03-18] VITALS: BP 117/55
[2016-03-18] MEDS: ALBUTEROL SULFATE 2.5 MG/0.5 ML INH NEB SOLN NEB SCH ×6 (03:14→23:50)
[2016-03-18 04:00] VITALS: BP 114/59
[2016-03-18 04:49] LABS: MEAN CORPUSCULAR HEMOGLOBIN 29.9 pg (27.0-33.0); MEAN CORPUSCULAR VOLUME 96.4 fl (80.0-96.0); RED CELL DISTRIBUTION WIDTH 13.6 % (11.5-14.5); WHITE BLOOD COUNT 8.9 K/mm3 (4.0-10.0)
[2016-03-18 05:02] LABS: ANION GAP 6 MEQ/L (8-16); BLOOD UREA NITROGEN 29 MG/DL (7-18); CALCIUM LEVEL 8.8 MG/DL (8.8-10.2); CARBON DIOXIDE LEVEL 42 MEQ/L (21-32); CHLORIDE LEVEL 99 MEQ/L (98-107); CREATININE FOR GFR 0.78 MG/DL (0.55-1.02); GLOMERULAR FILTRATION RATE > 60.0 (>39); GLUCOSE, FASTING 208 MG/DL (83-110); POTASSIUM SERUM 4.2 MEQ/L (3.5-5.1); SODIUM LEVEL 147 MEQ/L (136-145)
[2016-03-18] MEDS: SLF 3 ML SYR IV SCH ×3 (05:41→20:50)
[2016-03-18] MEDS: methylPREDNISolone INJ 125 MG/2 ML VIAL (J2930) IV SCH ×2 (07:52→20:49)
[2016-03-18] MEDS: HumaLOG INSULIN (NovoLOG) PER UNIT SC SCH ×4 (07:52→20:49)
[2016-03-18 08:00] VITALS: BP 128/60
[2016-03-18] MEDS ORDERED: FUROSEMIDE 40 MG/4 ML VIAL (J1940) IV ONE (08:30)
[2016-03-18] MEDS: LISINOPRIL 5 MG TAB PO SCH (09:09)
[2016-03-18] MEDS: ATORVASTATIN 20 MG TAB PO SCH (09:10)
[2016-03-18] MEDS: POTASSIUM CHLORIDE 10 MEQ SR TABLET PO SCH (09:10)
[2016-03-18] MEDS: NYSTATIN 100,000 UNITS/GM TOPICAL PWD 15 GM TOP SCH ×2 (09:10→20:50)
[2016-03-18] MEDS: LANSOPRAZOLE SUSPENSION 30 MG/10 ML ORAL SYRINGE (FIRST-LANSOPRAZOLE) PO SCH (09:10)
[2016-03-18] MEDS: ENOXAPARIN 40 MG/0.4 ML SYRINGE (J1650) SC SCH (09:10)
[2016-03-18 12:00] VITALS: BP 159/67
--- NOTE | 2016-03-18 13:04 | CR ---
DATE OF CONSULTATION: 03/18/2016 REASON FOR CONSULTATION: Nocturnal hypoxia. REQUESTING PHYSICIAN: Dr. Ilya Navarro HISTORY OF PRESENT ILLNESS: Eli is a 75-year-old female who was admitted with acute decompensated heart failure, increased dyspnea over the past 3 weeks with orthopnea, was found to have hypercarbic hypoxic respiratory failure at an outside institution and was then transferred here. The patient has been doing well. However, continues to have significant hypoxia at night despite now compensated hypercarbia. She was initiated on C-PAP and was attempted to be converted back to her usual C-PAP of 9 cm of water pressure. The patient had a sleep study 07/15/2007, on that sleep study there was a titration performed, titration was taken to a bilevel of 15/7, however it was felt that the most optimal pressure at that point in time was 9 cm of water pressure with 2 liters bled in. The patient had nocturnal oximetry performed last evening which showed continuous desaturations despite a C-PAP pressure of 18 cm of water pressure with 6 liters bled in. There is some Daryn-Baca respiratory pattern throughout the evening. The patient states she has been compliant with her C-PAP at home. It does not appear that she has had any recent pressure changes or recent titrations. There is some question of a possible history of chronic obstructive pulmonary disease and she remains on 60 mg of IV Solu-Medrol every 12 hours. She denies wheezing, cough or productive mucus. She denies any chest pain, lower extremity edema or calf pain. She has no history of thromboembolic disease. She did have a history of respiratory failure back in 2004 which required tracheostomy. During that hospitalization she was diuresed due to volume overload. Her trach was removed prior to discharge and she did not require any further mechanical ventilation at home. PAST MEDICAL HISTORY: 1. Osteoarthritis. 2. Dyslipidemia. 3. Diabetes. 4. Obesity hypoventilation. 5. Questionable history of chronic obstructive pulmonary disease. 6. History of respiratory failure status post trach 2004. 7. Known obstructive sleep apnea, home settings of C-PAP of 9 cm water pressure. 8. 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 9. Hypertension. CURRENT MEDICATIONS: - albuterol nebulizers every 4 hours scheduled, every 2 hours as needed - Lovenox 40 mg subcutaneous daily - lansoprazole 30 mg by mouth daily - Lipitor 20 mg by mouth daily - lisinopril 5 mg by mouth daily - lispro sliding scale - Solu-Medrol 60 mg IV every 12 hours ALLERGIES: No known drug allergies. SOCIAL HISTORY: The patient states she quit smoking in the . She lives with her in [place]. She states her [id number] is a registered nurse (RN) who lives next door and is quite helpful. She has no history of alcohol use, illicit drug use or occupational exposures. FAMILY HISTORY: No family history of lung disease. REVIEW OF SYSTEMS: GENERAL: The patient denies change in weight, fever, chills or night sweats. HEENT: She complains of difficulty with hearing, no change in vision. No epistaxis or difficulty swallowing. CARDIAC: No anginal history. Denies any chest discomfort but does have orthopnea, occasional paroxysmal nocturnal dyspnea (PND). Denies symptoms of claudication. PULMONARY: As per history of present illness (HPI), no pleuritic chest discomfort. No history of tuberculosis (TB) or TB exposures. GASTROINTESTINAL (GI): No nausea, vomiting, diarrhea, constipation. No blood in stool. GENITOURINARY (): No pain or discomfort with urination. No hematuria. NEUROLOGIC: No seizure activity, history of tremor or unilateral weakness. MUSCULOSKELETAL: No joint effusions. No recent trauma. SKIN: No rashes other than inguinal candidiasis. No pruritus. SLEEP: As per HPI. PSYCHIATRIC: No depression, suicidal ideation or anxiety. PHYSICAL EXAMINATION: Temperature is 97.1, pulse is 65, respiratory rate is 24, blood pressure is 128/60, oxygen saturations 91% on 3.0 liters while awake. Intake and output: 1200 in, 625 out, positive 575. Weight is 130 kg. GENERAL: The patient is sitting at the side of her bed without any distress. HEENT: Sclerae clear and anicteric. Pupils equal, react to light. Mucous membranes are moist without lesions. Oropharynx without erythema or exudate. Mallampati 4. Tongue is midline. NECK: Supple. No tracheal deviation or mass. LYMPHATICS: No cervical, supraclavicular or axillary adenopathy. CARDIAC: Regular S1, S2, without audible murmur, rub or gallop. No elevated jugular venous pressure (JVP). No peripheral edema. Point of maximal impulse (PMI) is difficult to palpate due to body habitus. Breath sounds clear to auscultation without rales, rhonchi or wheezes. No dullness to percussion. Poor inspiratory effort. ABDOMEN: Obese, soft, nontender. No discernible hepatosplenomegaly. No mass or hernia. EXTREMITIES: No cyanosis, clubbing or edema. SKIN: No rashes, jaundice or bruising. MUSCULOSKELETAL: No muscle wasting. No joint effusions. NEUROLOGIC: No unilateral weakness, tremor. Chest x-ray was last performed on 03/16/2016, which shows hypoventilation, no significant infiltrates. White blood cell count is 8.9, hemoglobin 12.7, hematocrit of 40.9 with a platelet count of 226, sodium is 147, potassium is 4.2, chloride 99, bicarbonate of 42 with BUN of 29, creatinine 0.78 and glucose of 208. Arterial blood gas at 04:24 this morning shows a pH of 7.42, pCO2 of 67 and PaO2 of 48. Echocardiogram performed 03/14/2016 was a limited study due to body habitus. There is concentric LVH with preserved left ventricular systolic function. There is evidence of diastolic dysfunction with an enlarged left atrium and trace pericardial effusion. Right-sided pressures cannot be evaluated. IMPRESSION: 1. Chronic hypoxic hypercarbic respiratory failure likely from obesity hypoventilation with an underlying diagnosis of obstructive sleep apnea. She has been intolerant to C-PAP despite elevating C-PAP pressures to 18 cm of pressure. She continues to be hypoxic and deemed to be in her stable state without significant systemic edema. Therefore will convert her to bilevel noninvasive therapy. Will titrate this during her hospital stay. I suspect her hypercarbia is from her obesity hypoventilation. There is some component of what appears to be Daryn-Baca respirations on her nocturnal oximetry from last evening. Will continue to monitor for need for additional oxygen replacement. Thank you for this consultation.
--- NOTE | 2016-03-18 13:31 | IPN ---
DATE: 03/18/2016 Ms. Ann is feeling well this morning. She has been out of bed and moving around the room short distances. Unfortunately, she did sleep poorly last night, she said her sleep was disturbed and she felt restless. Breathing is better. She had another nocturnal oxygen study done last night. Temperature is 96.8, pulse 57, respiratory rate 24, blood pressure 114/59, 88% on 4 liters oxygen, home level of oxygen is 2 liters. Positive fluid balance of 575, three bowel movements noted yesterday. Weight is 130.3 kg, with a body mass index of 49.3. She is awake, appropriately interactive, and pleasantly conversant, laying in bed, no acute distress. Speaking in complete sentences. No accessory muscle use. Mucous membranes are moist. Breathing is symmetrical, rested, somewhat diminished in the bases. Heart is in a regular rate and rhythm, borderline bradycardic. Abdomen is soft, doughy, nontender. White cell count 8.9, hemoglobin 12.7, platelets 226, BUN 29, creatinine 0.76, sodium 147. My assessment is as follows: This is a 75-year-old who presented with decompensated congestive heart failure with diastolic dysfunction, preserved left ventricular ejection fraction. Plan is as follows: 1. Congestive heart failure. Patient is much improved from her presentation. Does not appear to be grossly fluid overloaded, although might benefit from a further dose of intravenous (IV) Lasix. 2. The patient has hypoxic hypercapnic respiratory failure at the time of presentation. Has been having difficulty with her continuous positive airway pressure (CPAP) at home. We are attempting to find an adjustment for her CPAP that would allow for safe discharge. Will discuss with the covering leather staker today. 3. The patient has suspected obesity hypoventilation and dyslipidemia. 4. The patient has diabetes which is reasonably well controlled with her current setting.
--- NOTE | 2016-03-18 13:38 | NOCOX ---
DATE OF PROCEDURE: 03/17/2016 Nocturnal oximetry was performed on 03/17/2016 into 03/18/2016. The patient was initially on 3 liters bled into a C-PAP of 12 cm of water pressure. As the patient fell asleep, she had desaturations. Her C-PAP was increased to a total of 18 and oxygen increased to a total of 6 liters and continued to have desaturations despite these settings. She was intolerant to C-PAP. There was even mask refitting during this nocturnal oximetry. Heart rate ranged from 47 to 85 with an oxygen saturation ranging 74% to 95%. The time spent with an oxygen saturation less than 88% was 2 hours and 27 minutes. The longest period of time with an oxygen saturation less than 88% was 45 minutes. On the oximetry tracing, there was significant variable desaturations, some of which appear to be in a Daryn-Baca pattern. IMPRESSION: Significant variable desaturations despite supplemental oxygen and a C-PAP of 18 cm of water pressure. The patient appears to be intolerant to C-PAP therapy. Recommend retitration.
--- NOTE | 2016-03-18 13:47 | NOCOX ---
DATE OF PROCEDURE: 03/16/2016 to 03/17/2016 INTERPRETATION: Recording nocturnal oximetry was done on the patient's home CPAP at 9 cm of water pressure with an oxygen bleed in to keep her saturations greater than 90%. This was tried during the course of the night and eventually she required 12 liter bleed in to meet this criteria. Overall for the entire study, she spent 19.6% of the time with saturations less than 88% for a total 1 hour and 17 minutes. The longest continuous time was 25 minutes. Mean oxygen saturation for the study was 97% with a minimum recorded value likely in the high 70s. The printout is 64%, but that appears to be artifact. Mean saturation for the study was 89%. In reviewing the flow wave form, there were 1 to 2% variations at times during the study that would be suggestive of ongoing sleep disordered breathing. IMPRESSION: Persistent nocturnal hypoxemia on CPAP 9 cm of water pressure, requiring increased bleed in to 12 liters. There were 1 to 2% variations in the SpO2 waveform that may be suggestive of ongoing sleep disordered breathing. Clinical correlation will be necessary
[2016-03-18 16:00] VITALS: BP 110/59
[2016-03-18] MEDS: FUROSEMIDE 40 MG TAB PO SCH (16:21)
[2016-03-18 20:00] VITALS: BP 114/59
[2016-03-19] VITALS: BP 123/58
[2016-03-19 04:00] VITALS: BP 125/59
[2016-03-19] MEDS: ALBUTEROL SULFATE 2.5 MG/0.5 ML INH NEB SOLN NEB SCH ×6 (04:00→23:23)
[2016-03-19 04:57] LABS: MEAN CORPUSCULAR HEMOGLOBIN 30.1 pg (27.0-33.0); MEAN CORPUSCULAR VOLUME 97.2 fl (80.0-96.0); RED CELL DISTRIBUTION WIDTH 13.5 % (11.5-14.5); WHITE BLOOD COUNT 7.9 K/mm3 (4.0-10.0)
[2016-03-19 05:04] LABS: ANION GAP 4 MEQ/L (8-16); BLOOD UREA NITROGEN 32 MG/DL (7-18); CALCIUM LEVEL 8.7 MG/DL (8.8-10.2); CARBON DIOXIDE LEVEL 43 MEQ/L (21-32); CHLORIDE LEVEL 101 MEQ/L (98-107); CREATININE FOR GFR 0.77 MG/DL (0.55-1.02); GLOMERULAR FILTRATION RATE > 60.0 (>39); GLUCOSE, FASTING 216 MG/DL (83-110); POTASSIUM SERUM 4.2 MEQ/L (3.5-5.1); SODIUM LEVEL 148 MEQ/L (136-145)
[2016-03-19] MEDS: SLF 3 ML SYR IV SCH ×3 (06:00→22:00)
[2016-03-19 08:00] VITALS: BP 125/62
[2016-03-19] MEDS: HumaLOG INSULIN (NovoLOG) PER UNIT SC SCH ×4 (08:18→20:44)
[2016-03-19] MEDS: LANSOPRAZOLE SUSPENSION 30 MG/10 ML ORAL SYRINGE (FIRST-LANSOPRAZOLE) PO SCH (08:18)
[2016-03-19] MEDS: methylPREDNISolone INJ 125 MG/2 ML VIAL (J2930) IV SCH (08:19)
[2016-03-19] MEDS: ENOXAPARIN 40 MG/0.4 ML SYRINGE (J1650) SC SCH (08:19)
[2016-03-19] MEDS: POTASSIUM CHLORIDE 10 MEQ SR TABLET PO SCH (08:20)
[2016-03-19] MEDS: FUROSEMIDE 40 MG TAB PO SCH (08:20)
[2016-03-19] MEDS: LISINOPRIL 5 MG TAB PO SCH (08:20)
[2016-03-19] MEDS: ATORVASTATIN 20 MG TAB PO SCH (08:20)
[2016-03-19] MEDS: NYSTATIN 100,000 UNITS/GM TOPICAL PWD 15 GM TOP SCH ×2 (08:33→20:45)
[2016-03-19 12:00] VITALS: BP 120/56
[2016-03-19 16:00] VITALS: BP 123/61
[2016-03-19 20:00] VITALS: BP 167/82
[2016-03-20] VITALS: BP 136/63
[2016-03-20] MEDS: ALBUTEROL SULFATE 2.5 MG/0.5 ML INH NEB SOLN NEB SCH ×6 (02:50→22:54)
[2016-03-20 04:00] VITALS: BP 122/61
[2016-03-20 04:53] LABS: MEAN CORPUSCULAR HEMOGLOBIN 29.7 pg (27.0-33.0); MEAN CORPUSCULAR HGB CONC 30.6 g/dl (32.0-36.5); MEAN CORPUSCULAR VOLUME 97.2 fl (80.0-96.0); RED CELL DISTRIBUTION WIDTH 14.4 % (11.5-14.5); WHITE BLOOD COUNT 9.7 K/mm3 (4.0-10.0)
[2016-03-20 05:00] LABS: ANION GAP 5 MEQ/L (8-16); BLOOD UREA NITROGEN 31 MG/DL (7-18); CALCIUM LEVEL 8.7 MG/DL (8.8-10.2); CARBON DIOXIDE LEVEL 43 MEQ/L (21-32); CHLORIDE LEVEL 101 MEQ/L (98-107); CREATININE FOR GFR 0.82 MG/DL (0.55-1.02); GLOMERULAR FILTRATION RATE > 60.0 (>39); GLUCOSE, FASTING 146 MG/DL (83-110); POTASSIUM SERUM 3.6 MEQ/L (3.5-5.1); SODIUM LEVEL 149 MEQ/L (136-145)
[2016-03-20] MEDS: SLF 3 ML SYR IV SCH ×3 (06:10→20:48)
[2016-03-20 08:00] VITALS: BP 123/60
[2016-03-20] MEDS: ENOXAPARIN 40 MG/0.4 ML SYRINGE (J1650) SC SCH (08:38)
[2016-03-20] MEDS: LANSOPRAZOLE SUSPENSION 30 MG/10 ML ORAL SYRINGE (FIRST-LANSOPRAZOLE) PO SCH (08:38)
[2016-03-20] MEDS: POTASSIUM CHLORIDE 10 MEQ SR TABLET PO SCH (08:39)
[2016-03-20] MEDS: HumaLOG INSULIN (NovoLOG) PER UNIT SC SCH ×4 (08:39→20:39)
[2016-03-20] MEDS: LISINOPRIL 5 MG TAB PO SCH (08:40)
[2016-03-20] MEDS: ATORVASTATIN 20 MG TAB PO SCH (08:40)
[2016-03-20] MEDS: predniSONE 20 MG TAB PO SCH (08:40)
[2016-03-20] MEDS: NYSTATIN 100,000 UNITS/GM TOPICAL PWD 15 GM TOP SCH ×2 (08:41→20:49)
[2016-03-20] MEDS ORDERED: D5W 500 ML IV SCH (08:45)
[2016-03-20] MEDS ORDERED: FUROSEMIDE 40 MG TAB PO SCH (09:00)
[2016-03-20 10:38] VITALS: BP 140/64
--- NOTE | 2016-03-20 12:22 | NOCOX ---
DATE OF STUDY: 03/19/2016 and 03/20/2016 Nocturnal oximetry recording was performed on 03/19/2016 to 03/20/2016. The patient was on bilevel noninvasive therapy 18 over 10 with 5 liters bled in of oxygen. The patient had been intolerant to continuous positive airway pressure (CPAP) and is now in her stable state. Baseline heart rate was 60, heart rate ranged from 45-83, oxygen saturation ranged from 81% to 99%. The total time with an oxygen saturation less than 88% was 1 minute and 40 seconds. The longest continuous saturation less than 88% was 36 seconds. The patient had minimal variable desaturations with adequate suppression of respiratory events on her current settings. IMPRESSION: Obstructive sleep apnea, intolerant to CPAP, tolerating bilevel 18 over 10 well with 5 liters of bleed of oxygen. No significant hypoxia, and respiratory events fairly well palliated.
[2016-03-20 14:00] VITALS: BP 119/59
[2016-03-20 22:00] VITALS: BP 130/71
[2016-03-21] MEDS: ALBUTEROL SULFATE 2.5 MG/0.5 ML INH NEB SOLN NEB SCH ×6 (04:00→23:11)
--- NOTE | 2016-03-21 04:33 | IPN ---
DATE OF SERVICE: 03/19/2016 Ms. Ann is feeling well today. She tolerated sleeping with the bilevel positive airway pressure (BiPAP) last night once the mask was adequately adjusted. She says she found the inspiratory pressure a little bit unnerving, although did not notice any specific perks. No chest pain. No shortness of breath. Has been up and moving around short distances. Temperature is 98.3, pulse 62, respiratory rate 24, blood pressure 120/56, 92% 3 liters nasal cannula. Intake and output (I and O) notable for a negative fluid balance of -1090. Weight is 129.3 kg, with a body mass index of 48.9. I suspect this is her dry weight. She is awake, appropriately interactive, pleasantly conversant. Breathing is symmetrical. I:E ratio is 1:3. Diminished. Heart is distant sounding, normal S1, S2. Capillary refill is less than 2 seconds. Abdomen is soft, doughy, nontender. White cell count 7.9, BUN 32, creatinine 0.77, sodium 148. My assessment is as follows: This is a 75-year-old who presented with decompensated congestive heart failure with diastolic dysfunction, preserved left ventricular ejection fraction. Plan is as follows: 1. Congestive heart failure. I believe the patient is probably at her dry weight today. I have elected to withhold further Lasix today. Yesterday's dose probably achieved her dry weight. 2. Patient had hypoxic hypercapnic respiratory failure. I am greatly appreciative for Dr. Morrison' assistance in getting her appropriate nighttime therapy for home. Plan for possible discharge on Monday. 3. Patient has suspected obesity hypoventilation and dyslipidemia. 4. Patient has hypernatremia, which will be treated with withholding further Lasix. 5. Patient has diabetes, which is reasonably well controlled in the current setting and we will wean her steroids, which will also likely improve her glucose control.
[2016-03-21 05:46] LABS: MEAN CORPUSCULAR HGB CONC 31.3 g/dl (32.0-36.5); MEAN CORPUSCULAR VOLUME 95.8 fl (80.0-96.0); RED CELL DISTRIBUTION WIDTH 14.4 % (11.5-14.5)
[2016-03-21 06:00] VITALS: BP 129/68
[2016-03-21] MEDS: SLF 3 ML SYR IV SCH ×3 (06:00→22:02)
[2016-03-21 06:16] LABS: ANION GAP 3 MEQ/L (8-16); BLOOD UREA NITROGEN 26 MG/DL (7-18); CALCIUM LEVEL 8.6 MG/DL (8.8-10.2); CARBON DIOXIDE LEVEL 43 MEQ/L (21-32); CHLORIDE LEVEL 103 MEQ/L (98-107); CREATININE FOR GFR 0.66 MG/DL (0.55-1.02); GLOMERULAR FILTRATION RATE > 60.0 (>39); GLUCOSE, FASTING 117 MG/DL (83-110); POTASSIUM SERUM 3.3 MEQ/L (3.5-5.1); SODIUM LEVEL 149 MEQ/L (136-145)
[2016-03-21] MEDS: predniSONE 20 MG TAB PO SCH (08:58)
[2016-03-21] MEDS: ENOXAPARIN 40 MG/0.4 ML SYRINGE (J1650) SC SCH (08:58)
[2016-03-21] MEDS: LANSOPRAZOLE SUSPENSION 30 MG/10 ML ORAL SYRINGE (FIRST-LANSOPRAZOLE) PO SCH (08:58)
[2016-03-21] MEDS: ATORVASTATIN 20 MG TAB PO SCH (08:58)
[2016-03-21] MEDS: LISINOPRIL 5 MG TAB PO SCH (08:58)
[2016-03-21] MEDS: POTASSIUM CHLORIDE 10 MEQ SR TABLET PO SCH (08:58)
[2016-03-21] MEDS: HumaLOG INSULIN (NovoLOG) PER UNIT SC SCH ×4 (08:59→21:00)
[2016-03-21] MEDS: NYSTATIN 100,000 UNITS/GM TOPICAL PWD 15 GM TOP SCH ×2 (09:06→22:02)
--- NOTE | 2016-03-21 11:15 | IPN ---
DATE: 03/20/2016 Ms. Ann has been feeling well. She has been up, moving around short distances. No chest pain. No shortness of breath. Slept much better last night. Temperature 98.1, pulse 81, respiratory rate 20, blood pressure 119/59, 91% on 3 liters nasal cannula. Intake and output notable for a positive fluid balance of 1070. One bowel movement noted yesterday. Weight is 130.8 kg, with a body mass index of 49. She is awake, appropriately interactive, pleasantly conversant. Breathing is symmetrical, distant. Heart is distant sounding. Normal S1, S2. Abdomen is soft, doughy, nontender. White cell count 9.7. Sodium is 149, trending upward. BUN is 31, creatinine 0.8. My assessment is as follows: This is a 75-year-old who presented with decompensated congestive heart failure with diastolic dysfunction, preserved left ventricular ejection fraction. Plan is as follows: 1. Congestive heart failure. Patient would appear to be at her baseline. Lasix is stopped at this point based on her continuing hypernatremia. I have actually also given some D5W in an attempt to correct this. 2. Patient had hypoxic hypercapnic respiratory failure at time of presentation and is feeling the use of continuous positive airway pressure (CPAP) for obstructive sleep apnea. I did discuss this in person with Dr. Morrison today. Patient can be transferred to the floor with her current settings based on last nights manipulations. Plan for possible discharge tomorrow. 3. Patient has suspected obesity hypoventilation and dyslipidemia. 4. Patient has diabetes, which is reasonably well controlled.
--- NOTE | 2016-03-21 12:47 | NOCOX ---
DATE OF PROCEDURE: 03/20/2016 to 03/21/2016. Nocturnal oximetry was performed on bilevel 28/12 initially on room air. Patient had hypoxia soon after initiation of sleep and therefore, was titrated up to 3 liters of oxygen. Even at 3 liters of oxygen there was some variable desaturations. The longest continuous time with a saturation less than 88 was 23 minutes and 54 seconds. The total continuous time with an oxygen saturation less than 88% was 1 hour 8 minutes. Heart rate ranged from 56-86. Oxygen saturation ranged from 77-100%. IMPRESSION: Variable desaturations better titrated on 28/12 on 5 liters compared to yesterday study on 3 liters, not yet optimal. Recommend home bilevel noninvasive therapy at 18 with 5 liters bled in.
--- NOTE | 2016-03-21 12:56 | CCN ---
DATE: 03/21/2016 I am seeing Ms. Ann today to help titrate her nocturnal positive airway pressure as she has been in her stable state for the past 3-4 days. She has not had a titration for many years prior to her hospitalization. It was obvious that she was intolerant to continuous positive airway pressure (CPAP) and therefore was switched to bilevel. I titrated her bilevel up to 18/10. On 28/12, she had a nocturnal oximetry performed on 5 liters, which showed adequate suppression of respiratory events. Last evening, nocturnal oximetry was performed in order to qualify for oxygen. This study was started on room air. Showed immediate desaturations. Was titrated up to 3 liters, which showed continued minimal desaturations, which were eliminated with 5 liters based on the prior testing. Therefore, I recommend that she has bilevel positive airway pressure (BiPAP) 28/12 with 5 liters of oxygen bled in. At this point in time, she is able to be discharged. However, she will require bilevel machine at home. Her home company has been contacted. There is none in stock. Therefore, she will stay here until she has this available to her. Physical exam today: Temperature is 97.6, pulse is 67, respiratory rate is 20, and blood pressure is 135/63. General: Patient is sitting at the side of her bed, awake, alert, with good palliation of daytime symptoms. HEENT: Sclerae clear and anicteric. Pupils equal, react to light. Mucous membranes are moist without lesions. Mallampati 4. Neck: Supple. No tracheal deviation or mass. Increased thoracic kyphosis with increased cervical lordosis. Cardiac: Regular, S1, S2, without audible murmur, rub or gallop. No elevated jugular venous pulse (JVP). No lower extremity edema. Pulmonary: Clear to auscultation without rales, rhonchi or wheezes. No dullness to percussion. Chest: Symmetric without accessory muscle use. Abdomen is obese, soft, nontender, nondistended. No hepatosplenomegaly. No masses or hernia. Extremities: No cyanosis, clubbing or edema. Laboratory evaluation shows hypernatremia. Sodium 149, potassium 3.3, chloride 103, bicarbonate of 43, BUN of 26, creatinine 0.66 with a glucose 117. White blood cell count is at 10.0 with a hemoglobin of 12.7. IMPRESSION: Obstructive sleep apnea intolerant to CPAP. On bilevel 28/12 as mentioned above on the past two nocturnal oximetry the patient does well with oxygen bled in. She has good palliation of daytime symptoms and feels much better on these settings. I will therefore prescribe 28/12 with 5 liters of blood in to assist this patient with her outpatient management now that she is in her chronic stable state.
--- NOTE | 2016-03-21 13:29 | NOCOX ---
DATE OF STUDY: 03/16/20152016 INTERPRETATION: Recording nocturnal oximetry was performed initially on patient's home continuous positive airway pressure (CPAP) of 9 cm of water pressure with a 3 liter bleed-in. She wore this device for approximately 40 minutes. During that time, her saturations went down to 84%. The bleed-in was increased to 4 liters, but her desaturations persisted. She was then changed to the Vision at 9 cm of water pressure with, I believe, 30% bleed-in. Tidal volumes were 120-200 range, so she was increased to 12 cm of water pressure. There still was no significant change in the volumes. She remained on 30% bleed-in through the Vision throughout. In reviewing the waveforms described during this time, she initially had 1-2% variations in the SpO2 waveform, suggestive of ongoing sleep disorder breathing. However, later in the night, she had less fluctuation. I am not certain exactly when the pressure was increased to 12, but the improved SpO2 waveform clearly was on a pressure of 12 cm water. Also on that pressure, in reviewing the waveforms, it appeared her saturations were around 90%. In reviewing the printout for this night, she overall spent 17.7% of the night with saturations less than 88%, for a total of 1 hour and 11 minutes. The longest consecutive time was 33 minutes and 50 seconds, but that was before adjustment in the CPAP pressure. Overall, for the entire study, her mean oxygen saturation was 89% with the lowest recorded value 79%, which was likely artifactual. I suspect her lowest recorded value was in the low 80s. IMPRESSION: This is a difficult overnight oximetry to interpret because of the various changes. However, she appeared to do reasonably well on the Vision on a CPAP of 12 cm of water with an FiO2 of 0.3 bleed-in.
[2016-03-21 14:00] VITALS: BP 125/62
--- NOTE | 2016-03-21 17:17 | IPN ---
DATE: 03/21/2016 The patient is feeling well, she is awake, appropriately interactive, pleasantly conversant, a little disappointed that she cannot go home today as her device will not be available to her. Temperature is 97.6, pulse 67, respiratory rate 20, blood pressure 129/68, 97%. She is awake, appropriately interactive, pleasantly conversant. Mucous membranes moist. Neck is supple. Weight is 130.5 kg with a body mass index of 49.4. Breathing is symmetrical and rested. I:E ratio is 1:3. No wheezing, rales or rhonchi. White count 10, hemoglobin 12.6. Sodium is 149, potassium 3.3, chloride 103, carbon dioxide 43, BUN 26, creatinine 0.66. Point of care glucose is 136 most recently. ASSESSMENT: This is a 75-year-old who presented with decompensated congestive heart failure, which would appear to be compensated. PLAN: 1. Congestive heart failure. The patient appears to be at her baseline. Weight is relatively stable. Lasix is currently and temporarily discontinued based on hypernatremia. I did actually give free water yesterday via IV. Continue to monitor same. Lasix will need to be restarted at the time of discharge. 2. The patient has hypoxic hypercapnic respiratory failure and is now on bilevel positive airway pressure (BiPAP). Greatly appreciative of Dr. Morrison for assisting with arranging for this. A device should be available as early as tomorrow. 3. The patient is suspected of obesity hypoventilation. 4. The patient has dyslipidemia. 5. The patient has diabetes, which is reasonably controlled. [facility]
[2016-03-21 22:00] VITALS: BP 120/59
[2016-03-22] MEDS: ALBUTEROL SULFATE 2.5 MG/0.5 ML INH NEB SOLN NEB SCH ×3 (03:40→11:31)
[2016-03-22 06:00] VITALS: BP 131/79
[2016-03-22] MEDS: SLF 3 ML SYR IV SCH ×2 (06:00→14:00)
[2016-03-22 06:10] LABS: MEAN CORPUSCULAR HEMOGLOBIN 31.2 pg (27.0-33.0); MEAN CORPUSCULAR HGB CONC 32.4 g/dl (32.0-36.5); MEAN CORPUSCULAR VOLUME 96.2 fl (80.0-96.0); RED CELL DISTRIBUTION WIDTH 13.4 % (11.5-14.5); WHITE BLOOD COUNT 9.9 K/mm3 (4.0-10.0)
[2016-03-22 06:24] LABS: ANION GAP 3 MEQ/L (8-16); BLOOD UREA NITROGEN 24 MG/DL (7-18); CALCIUM LEVEL 8.6 MG/DL (8.8-10.2); CARBON DIOXIDE LEVEL 42 MEQ/L (21-32); CHLORIDE LEVEL 101 MEQ/L (98-107); CREATININE FOR GFR 0.76 MG/DL (0.55-1.02); GLOMERULAR FILTRATION RATE > 60.0 (>39); GLUCOSE, FASTING 124 MG/DL (83-110); POTASSIUM SERUM 3.6 MEQ/L (3.5-5.1); SODIUM LEVEL 146 MEQ/L (136-145)
[2016-03-22] MEDS: ENOXAPARIN 40 MG/0.4 ML SYRINGE (J1650) SC SCH (08:58)
[2016-03-22 08:59] VITALS: BP 150/66
[2016-03-22] MEDS: HumaLOG INSULIN (NovoLOG) PER UNIT SC SCH ×2 (08:59→12:00)
[2016-03-22] MEDS: LISINOPRIL 5 MG TAB PO SCH (08:59)
[2016-03-22] MEDS: POTASSIUM CHLORIDE 10 MEQ SR TABLET PO SCH (08:59)
[2016-03-22] MEDS: predniSONE 20 MG TAB PO SCH (09:00)
[2016-03-22] MEDS: ATORVASTATIN 20 MG TAB PO SCH (09:00)
[2016-03-22] MEDS: NYSTATIN 100,000 UNITS/GM TOPICAL PWD 15 GM TOP SCH (09:00)
[2016-03-22] MEDS: LANSOPRAZOLE SUSPENSION 30 MG/10 ML ORAL SYRINGE (FIRST-LANSOPRAZOLE) PO SCH (09:00)
[2016-03-22] MEDS ORDERED: PRED10PA PO (11:33)
--- NOTE | 2016-03-22 14:02 | DS.PDOC ---
Discharge Summary General Date of Admission Mar 14, 2016 at 13:45 Date of Discharge Mar 22, 2016 Primary Care Physician: Victor Hugo Dee MD Attending Physician: ABRAN BATES MD Specialist/Consultants Involve: TRICIA LEARY Discharge Summary DISCHARGE DIAGNOS(E)S: 1. Acute decompensation of diastolic congestive heart failure with preserved left ventricular ejection fraction 2. Hypoxic hypercapnic respiratory failure requiring BiPAP 3. Obstructive sleep apnea intolerant to CPAP, with suspected obesity hypoventilation syndrome 4. Dyslipidemia 5. Diabetes mellitus type 2 HPI & HOSPITAL COURSE: Miss Ann presented to [facility] after being seen at [facility], as she was found to be in acute decompensated heart failure. Her shortness of breath was progressive over 3 weeks prior to her admission. During her hospitalization she was diuresed, an echocardiogram was performed that revealed she had preserved left ventricular ejection fraction with global hypertrophy of the left ventricle and diastolic dysfunction. It appears that she has not been titrated for her CPAP and approximately a decade, and she was not tolerating her CPAP well at night, therefore repeat pulse oximetry was performed multiple evenings at various settings that revealed significant variable desaturations despite supplemental oxygen and CPAP, therefore she was switched over to BiPAP which was adjusted until it was found that she did not have significant hypoxia and respiratory events overnight were fairly well palliated. She reports significant improvement in her shortness of breath, she still requires 3 L of nasal cannula oxygen at all times which is her baseline, she also reports that the past few nights have been the most restorative and restful night's sleep she has had a long time. A BiPAP machine was secured for her that she can take home, and she is now stable to return home at the time of discharge. PHYSICAL EXAMINATION ON DISCHARGE: GENERAL: Awake, alert, oriented 3. She is sitting upright in the chair. She is pleasant speak with. CARDIOVASCULAR EXAMINATION: Distant heart sounds, however it appears she has regular rate and rhythm, with no appreciable rubs, gallops, or murmur. RESPIRATORY EXAMINATION: Clear to auscultation bilaterally with no wheezes, rales, or rhonchi. ABDOMINAL EXAMINATION: Soft, obese, nontender, nondistended. Bowel sounds present. EXTREMITIES: No clubbing or edema noted. DISPOSITION: Home DISCHARGE INSTRUCTIONS: Please follow up with PCP Dr. Dee on 03/28/2016 at 3:[address] [place] [address]. Leary state epidemiologist's office will call you with an appointment ([phone]). Continue to use her BiPAP as directed. Activity as tolerated. 2 g sodium restriction diet. If symptoms return, or if you experience worsening of your symptoms, please call your doctor or return to the emergency department. My preceptor for this patient encounter was physically present in the building during the encounter and was fully available. As needed, all aspects of the patient interview, examination, medical decision making process, and medical care plan development were reviewed and approved by the preceptor. Preceptor is aware and concurs with the plan as stated in the body of this note and will attest to such by his/her cosignature. Vital Signs/I&Os Vital Signs Date Time Temp Pulse Resp B/P Pulse Ox O2 Delivery O2 Flow Rate FiO2 03/22/16 08:59 150/66 03/22/16 08:55 Nasal Cannula 3.0 03/22/16 06:00 96.8 69 18 91 03/19/16 04:00 50 I&O- Last 24 Hours up to 6 AM 03/22/16 06:00 Intake Total 840 ml Output Total 200 ml Balance 640 ml Laboratory Data Labs 24H Laboratory Tests 2 03/21/16 17:08: Bedside Glucose (Misc Panel) 176H 03/21/16 20:58: Bedside Glucose (Misc Panel) 112H 03/22/16 05:52: Anion Gap 3L, Blood Urea Nitrogen 24H, Creatinine 0.76, Sodium Level 146H, Potassium Level 3.6, Chloride Level 101, Carbon Dioxide Level 42H, Calcium Level 8.6L, Glomerular Filtration Rate > 60.0 03/22/16 11:49: Bedside Glucose (Misc Panel) 152H CBC/BMP Laboratory Tests 03/22/16 05:52 Calcium Level 8.6 L, Red Blood Count 4.12, Mean Corpuscular Volume 96.2 H, Mean Corpuscular Hemoglobin 31.2, Mean Corpuscular Hemoglobin Concent 32.4, Red Cell Distribution Width 13.4 FSBS Laboratory Tests Test 03/21/16 17:08 03/21/16 20:58 03/22/16 11:49 Range/Units Bedside Glucose (Misc Panel) 176 112 152 83-110 MG/DL Microbiology Microbiology 1/2/17 Gram Stain - Final, Complete 03/14/16 Sputum Culture - Final, Complete 03/14/16 MRSA Screen - Final, Complete Medications Scheduled Atorvastatin Calcium (Atorvastatin Calcium) 20 Mg Tab 20 MG PO DAILY PATIENT IS ALL OUT Calcium (Calcium) 600 Mg Tab 600 MG PO DAILY Furosemide (Lasix) 40 Mg Tab 40 MG PO DAILY SUPPOSED TO BE TAKING BID Lisinopril (Lisinopril) 5 Mg Tab 5 MG PO DAILY PATIENT IS ALL OUT Metformin Hydrochloride (Metformin HCl) 500 Mg Tab 500 MG PO QPM Potassium Chloride (Klor-Con M20) 20 Meq Tabcr 20 MEQ PO DAILY Prednisone (Prednisone) 10 Mg Tahir 10 MG PO ASDIRECTED Allergies Coded Allergies: No Known Allergies (Verified Allergy, Unknown, 03/18/04) INES MOJICA DO Mar 22, 2016 13:46
== END 2016-03-22 14:54 | disposition home health service (06) | DRG 291 ==
LOC: M ED 12:20 → M ED INP 13:45 → M ICU 14:52 → M MSPAV 03-20 10:29
PROVIDERS: ADMIT Internal Medicine; ATTEND Internal Medicine
PROC: 5A09457 Assistance with Respiratory Ventilation, 24-96 Consecutive Hours, Continuous Positive Airway Pressure (ICD-10-PCS; principal; 2016-03-16)
DX: I11.0 Hypertensive heart disease with heart failure (principal); J96.02 Acute respiratory failure with hypercapnia; J96.01 Acute respiratory failure with hypoxia; Z68.43 Body mass index [BMI] 50.0-59.9, adult; E66.2 Morbid (severe) obesity with alveolar hypoventilation; E87.0 Hyperosmolality and hypernatremia; I50.33 Acute on chronic diastolic (congestive) heart failure; E78.5 Hyperlipidemia, unspecified; E11.9 Type 2 diabetes mellitus without complications; J44.9 Chronic obstructive pulmonary disease, unspecified; Z99.81 Dependence on supplemental oxygen; Z99.89 Dependence on other enabling machines and devices; Z79.899 Other long term (current) drug therapy; Z79.84 Long term (current) use of oral hypoglycemic drugs; Z91.14 Patient's other noncompliance with medication regimen; Z87.891 Personal history of nicotine dependence